=== PATIENT | female | born 1990 | race Caucasian/White ===

== ENCOUNTER 2019-10-22 15:16 | Observation (INO) | payer OTHER, SELFPAY ==
[2019-10-22] VITALS (16 sets, daily range): BP systolic 110–131; BP diastolic 65–87; PULSE 87–123; TEMP 36.8
[2019-10-22] MEDS: BETAMETHASONE SOD PHOS/ACETATE 30 MG/5 ML VIAL 12 MG IM (18:56)
[2019-10-22] MEDS: NIFEdipine 30 MG TAB.ER.24 PO ×2 (18:56→20:03)
[2019-10-22 19:03] LABS: Glucose Point of Care 88 (65-105)
[2019-10-22] MEDS: TERBUTALINE SULFATE 1 MG/ML VIAL 0.25 MG SUB-Q (20:20)
[2019-10-22] MEDS: LACTATED RINGERS 1,000 ML 999 ML IV CONT (20:28)
[2019-10-22 21:30] LABS: Glucose Point of Care 183 (65-105)
[2019-10-22] MEDS: ZOLPIDEM TARTRATE 5 MG TABLET PO (22:19)
[2019-10-23 00:30] VITALS: TEMP 36.9
--- NOTE | 2019-10-23 04:24 | PM.IMHP ---
H&P: HPI History of Present Illness Chief complaint: Contractions Narrative: Amber Zaragoza is a 28 year old female Review of Systems Review of Systems: All systems reviewed & are unremarkable except as noted in HPI and below Meds Home Medications and Allergies Allergies Allergy/AdvReac Type Severity Reaction Status Date / Time No Known Allergies Allergy Unverified 12/15/16 14:57 Vital Signs Vital Signs - 24 hr 10/22/19 15:46 10/22/19 16:01 10/22/19 16:16 Temperature Pulse Rate 94 106 H 93 Blood Pressure 120/80 115/80 131/77 10/22/19 16:31 10/22/19 16:46 10/22/19 17:01 Temperature Pulse Rate 123 H 94 99 Blood Pressure 121/77 119/79 118/75 10/22/19 17:02 10/22/19 17:16 10/22/19 17:31 Temperature Pulse Rate 87 93 91 Blood Pressure 119/70 115/70 115/65 10/22/19 17:46 10/22/19 18:01 10/22/19 18:16 Temperature Pulse Rate 111 H 102 H 107 H Blood Pressure 116/80 110/75 126/87 10/22/19 18:30 10/22/19 18:31 10/22/19 18:46 Temperature 36.8 C Pulse Rate 95 123 H Blood Pressure 117/69 116/84 10/22/19 22:30 Temperature 36.8 C Pulse Rate Blood Pressure Exam Const: General: no acute distress GI: GI Palp: Yes Soft to palpation Skin: General skin exam: normal color Neuro: General: gait normal Assessment and Plan Additional Plan 1. contractions w/o labor IV hydration betamethasone procardia 30 mg XL 2. GDM diet controlled continue fasting and 1 hour postprandial blood sugar If no cervical change plan to d/c home in the am and follow up for second dose of betamethasone as scheduled plan procardia 30 mg xl daily until 36 weeks gestation
[2019-10-23 04:45] VITALS: TEMP 36.9
== END 2019-10-23 05:15 | disposition home or self-care (01) ==
PROVIDERS: Admitting Provider Obstetrics & Gynecology; Visit Provider Obstetrics & Gynecology
DX: O60.00 Preterm labor without delivery, unspecified trimester (principal); O24.410 Gestational diabetes mellitus in pregnancy, diet controlled; Z3A.00 Weeks of gestation of pregnancy not specified
CPT/HCPCS: 96372; A9270; G0378; G0379; J0702; J3105; J7120

== ENCOUNTER 2019-10-23 18:56 | Outpatient (CLI) | payer OTHER, SELFPAY ==
[2019-10-23] VITALS (24 sets, daily range): BP systolic 119–132; BP diastolic 66–78; PULSE 98–128; TEMP 36.7; O2SAT 97–100
--- NOTE | 2019-10-23 19:15 | PC.NURSE ---
Patient at OB unit for 2nd dose of Celestone per order. Upon assessment, patient reports >6 contractions in an hour over the last hour. Patient placed on Monitor for NST.
[2019-10-23] MEDS: BETAMETHASONE SOD PHOS/ACETATE 30 MG/5 ML VIAL 12 MG IM (19:16)
--- NOTE | 2019-10-23 19:31 | PC.NURSE ---
Updated Dr. Vee on patient contractions >6 in 1 hour of monitoring. Contractions palpate mild in intensity. FHT reactive. VS WNL. Orders given.
--- NOTE | 2019-10-23 20:10 | PC.NURSE ---
Updated Dr. Vee on patient contractions >6 in 1 hour of monitoring. Contractions palpate mild in intensity. FHT reactive. VS WNL. Orders given.
[2019-10-23] MEDS: TERBUTALINE SULFATE 1 MG/ML VIAL 0.25 MG SUB-Q (20:22)
--- NOTE | 2019-10-23 20:22 | PC.NURSE ---
Plan of care reviewed with patient. Medication education performed prior to administering Terbutaline. Patient agrees with plan of care and denies questions.
--- NOTE | 2019-10-23 21:31 | PC.NURSE ---
Dr. Vee updated on patient uterine activity, FHT, vital signs and SVE. Dr. Vee offered for patient to go home or patient may receive a second dose of terbutaline if she does not feel comfortable going home. Patient to follow-up at appointment in AM.
--- NOTE | 2019-10-23 21:35 | PC.NURSE ---
Plan of care discussed with patient. Patient given option to go home now, or receive another dose of terbutaline if she did not feel comfortable going home. Patient states she feels comfortable going home and would like to leave. Patient instructed to follow-up at scheduled appointment. labor precautions reviewed with patient before she left. Patient states understanding and denies questions.
== END 2019-10-23 21:40 | disposition home or self-care (01) ==
LOC: ANHOBOP 19:08 → ANHOBPP 19:10
PROVIDERS: Visit Provider Obstetrics & Gynecology
DX: Z36.89 Encounter for other specified antenatal screening (principal)
CPT/HCPCS: 59025; 99199; J0702; J3105

== ENCOUNTER 2019-11-18 06:25 | Inpatient (IN) | payer OTHER, SELFPAY ==
[2019-11-18] VITALS (22 sets, daily range): BP systolic 111–136; BP diastolic 49–98; PULSE 72–103; RESP 18–20; TEMP 36.8–37.2; O2SAT 98; BMI 29.4
--- NOTE | 2019-11-18 07:30 | WPDHPUPDATE1 ---
History and Physical Update Update Date/Time: 11/18/19 07:30 This patient is a 28 y/o at 38 week gestation who presents for labor. She is a diet controlled GDM. SROM History and Physical has been reviewed, including an updated exam of the patient. There are NO changes in the patient's condition. Risks, benefits, and alternatives have been discussed and questions answered. Patient agrees to proceed with procedure.
[2019-11-18 07:46] LABS: Basophils Percent Auto 0.3 % (0.2-1.2); Eosinophils Absolute Auto 0.1 K/mm3 (0-0.3); Eosinophils Percent Auto 0.7 % (0-4.4); Hematocrit 40.6 % (37.0-47.0); Hemoglobin 13.7 g/dL (12.0-15.0); Immature Granulocyte Absolute 0.12 K/mm3 (0.00-0.031); Immature Granulocyte Percent A 0.9 % (0-0.5); Lymphocytes Absolute Auto 2.55 K/mm3 (0.9-3.2); Lymphocytes Percent Auto 18.4 % (18.3-44.2); Mean Corpuscular HGB Conc 33.7 g/dl (32-36); Mean Platelet Volume 12.1 fl (7.4-10.4); Monocytes Absolute Auto 0.8 K/mm3 (0.1-0.6); Monocytes Percent Auto 5.8 % (2.6-8.5); Neutrophils Absolute Auto 10.3 K/mm3 (1.3-6.7); Neutrophils Percent Auto 73.9 % (45.5-73.1); Platelet Count Result 207 k/mm3 (150-375); Red Blood Count 4.56 M/mm3 (4.2-5.4); Red Cell Distribution Width 13.1 % (11.5-14.5); White Blood Count 13.9 K/mm3 (4.5-10.0)
--- NOTE | 2019-11-18 07:48 | LDADM ---
This patient, Amber Zaragoza, was admitted to Labor/Delivery/Recovery 102 on 11/18/19 at 06:25. Plans for labor, pain management and were discussed with patient. Patient/family oriented to hospital policies and general routines including ID bracelet, bed and alarms, visiting hours, pain management, procedures, bathroom and other care routines, personal items, smoking policy, room service/diet and guest tray routines, security routines, call light, and visiting hours. Patient/Family are encouraged to report perceived risks to care and to ask questions if they do not understand what they are told or what they should do. See OBIX for further documentation.
[2019-11-18 08:03] LABS: Glucose Point of Care 75 (65-105)
[2019-11-18 10:37] LABS: Rapid Plasma Reagin Non-Reactive (NonReactive)
--- NOTE | 2019-11-18 11:07 | PM.OBPNVD ---
OB - PN: Subj Subjective Date/time seen: 11/18/19 11:07 OB - PN: Obj Data Labs CBC & Chem 7: 11/18/19 07:32 11/18/19 07:32 Labs: Laboratory Results - last 24 hr 11/18/19 11/18/19 11/18/19 07:32 07:32 07:32 WBC 13.9 H RBC 4.56 Hgb 13.7 Hct 40.6 MCV 89.0 MCH 30.0 MCHC 33.7 RDW 13.1 Plt Count 207 MPV 12.1 H Immature Gran % (Auto) 0.9 H Neut % (Auto) 73.9 H Lymph % (Auto) 18.4 [place] % (Auto) 5.8 Eos % (Auto) 0.7 Baso % (Auto) 0.3 Lymph # (Auto) 2.55 [place] # (Auto) 0.8 H Eos # (Auto) 0.1 Baso # (Auto) 0.0 Abs Immat Gran (auto) 0.12 H Absolute Neuts (auto) 10.3 H Absolute Nucleated RBC 0.0 Nucleated RBC % 0.0 Glucose POC Capillary Glucose RPR Non-reactive Blood Type A Positive Antibody Screen Negative 11/18/19 11/18/19 07:32 07:57 WBC RBC Hgb Hct MCV MCH MCHC RDW Plt Count MPV Immature Gran % (Auto) Neut % (Auto) Lymph % (Auto) [place] % (Auto) Eos % (Auto) Baso % (Auto) Lymph # (Auto) [place] # (Auto) Eos # (Auto) Baso # (Auto) Abs Immat Gran (auto) Absolute Neuts (auto) Absolute Nucleated RBC Nucleated RBC % Glucose Cancelled POC Capillary Glucose 75 RPR Blood Type Antibody Screen OB - PN A/P Assessment and Plan (1) Term : Code(s): Z34.90 - Encounter for supervision of normal , unspecified, unspecified trimester Status: Acute (2) Active labor: Status: Acute Assessment and Plan: 28-year-old multi hip at term in active labor. Artificial rupture of membranes was performed. She has the fluid was clear. The cervix is 6 cm/90%/ 0 station. There is reassuring status Time Spent With Patient Time: Total time spent is greater than 50% in coordination of care (as documented) at patient's floor/unit and/or counseling patient:
[2019-11-18 12:05] LABS: Glucose Point of Care 83 (65-105)
--- NOTE | 2019-11-18 12:59 | P.PCNOB_ITS ---
OB - Delivery Note Procedure Delivery date: 11/18/19 Procedure: Intrapartal events: None Induction method: none Delivery augmentation: rupture of membranes Delivery monitor: external FHT and external uterine Route of delivery: Episiotomy description: None Laceration description: None Specimen: No Estimated blood loss (mL): 200 Disposition: floor [place] Date of : 11/18/19 Time of : 12:40 Weeks of gestation at delivery: 39 Infant gender: Male Weight (pounds): 6 Weight (ounces): 6 presentation: vertex position: Left Occiput Transverse Placenta delivery description: Spontaneous cord vessel description: 3 Vessels score one minute: 8 score five minutes: 9
[2019-11-18] MEDS: OXYTOCIN 30 UNITS/NS 500 ML 30 UNITS/500 ML BAG 125 UNITS IV CONT (13:31)
[2019-11-18] MEDS: IBUPROFEN 600 MG TABLET PO (13:31)
--- NOTE | 2019-11-18 15:45 | OBPPTRN ---
Patient transferred to post room # 291 via wheelchair. Support person present. Oriented to unit, room, information board, rooming in, admission packet and security measures. Patient verbalizes understanding.
[2019-11-19 05:37] LABS: Hematocrit 39.6 % (37.0-47.0); Hemoglobin 13.3 g/dL (12.0-15.0)
[2019-11-19 08:00] VITALS: BP 130/67; PULSE 69; RESP 18; TEMP 36.9
--- NOTE | 2019-11-19 08:09 | PM.OBPNVD ---
OB - PN: Subj Subjective Date/time seen: 11/19/19 08:09 Patient comments: no complaints baby status: doing well OB - PN: Obj Data Labs CBC & Chem 7: 11/19/19 05:01 11/18/19 07:32 Labs: Laboratory Results - last 24 hr 11/18/19 11/18/19 11/18/19 07:32 07:32 12:02 Hgb Hct POC Capillary Glucose 83 RPR Non-reactive Blood Type A Positive Antibody Screen Negative 11/19/19 05:01 Hgb 13.3 Hct 39.6 POC Capillary Glucose RPR Blood Type Antibody Screen OB - PN A/P Plan day: 1 Plan: discharge home Time Spent With Patient Time: Total time spent is greater than 50% in coordination of care (as documented) at patient's floor/unit and/or counseling patient: Review of Systems Review of Systems: All systems reviewed & are unremarkable except as noted in HPI and below Constitutional: Constitutional: Reports as per HPI Cardiovascular: Cardiovascular: Reports as per HPI Gastrointestinal: Gastrointestinal: Reports as per HPI Exam Const: General: comfortable Resp: Effort & Inspection: normal respiratory effort Psych: Appearance: grossly normal Affect: normal affect Attitude: cooperative Judgement: Good judgement present (Psych)
[2019-11-19] MEDS: SERTRALINE HCL 50 MG TABLET PO (10:37)
[2019-11-19] MEDS: MULTIVIT/MIN/PREN/FOL AC/IRON TABLET 1 TAB PO (10:37)
[2019-11-20 12:52] VITALS: BP 119/87; PULSE 104; RESP 24
--- NOTE | 2019-12-15 20:55 | PM.OBDSVD ---
DS: Admitting Diagnosis Admitting Diagnosis Admitting Diagnosis: Encounter for supervision of normal , unspecified, third trimester DS: Discharge Diagnosis Discharge Diagnosis (1) Term delivered: Code(s): O80 - Encounter for full-term uncomplicated delivery Status: Acute OB - DS: Summary OB Procedures : None OB Procedures Intrapartum: Spontaneous Vag Delivery OB Procedures: : None Peripartum Data Delivery Method: Natural Vaginal Time Spent with Patient Time attestation: Total time spent providing and/or coordinating discharge services: DS: Data Data Completed and Pending Completed studies during hospitalization: Pending at discharge 11/18/19 17:04 Surgical [PTH] Routine Discharge Plan Discharge Attending physician on discharge: Wendy Ornelas Consulting providers: Kassandra Brand Discharging Clinician: Kassandra Brand Patient Disposition: Home, Self-Care Activity: pelvic rest Diet: regular Discharge Instructions: Education: Mom and Baby Guide Given to: Mother Follow-Up: Call your delivering provider's office for an appointment to be seen in: 4-6 weeks. Mom and baby should come to the [facility] for the follow-up appointment. Appointment Date/Time: November 20, 2019 at 12:30 am What to expect at your follow-up visit: Physical Assessment Call [phone] if you are unable to keep your appointment time. BREAST CARE: 1. Wear a snug supportive bra. 2. For engorgement discomfort: Breast Feeding: A. Apply warm moist washcloths B. Express milk as needed to relieve engorgement C. Wear loose clothing 3. For sore nipples: A. Identify correct latch-on B. Apply warm moist washcloths before and after nursing C. Air dry nipples after nursing D. May apply Lansinoh cream to nipples PERINEAL CARE: 1. Until bleeding stops, use your petra bottle after urinating 2. Change your pad frequently throughout the day 3. You may take sitz baths several times a day (fill your bathtub with warm water and soak for 20 minutes.) Do NOT bathe in the water 4. No tub baths until seen by your physician - You may shower ACTIVITY: 1. Rest as much as possible. 2. Do not exercise or lift anything heavier than your baby (such as laundry or other children.) 3. Avoid stairs or driving as much as possible. 4. Do not put anything into the vagina. No douching, tampons, or sexual activity until seen by physician. NOTIFY PHYSICIAN IF YOU HAVE ANY QUESTIONS OR IF ANY OF THE FOLLOWING SYMPTOMS OCCUR: 1. If your perineum becomes red, swollen, or more painful than what you have experienced in the hospital. 2. If your vaginal bleeding becomes foul smelling. 3. If your vaginal bleeding becomes more heavy than a period or if your bleeding changes from pink to bright red. However, you may pass an occasional walnut-sized clot once or twice for the first week . 4. If you experience a sharp, shooting pain in you calves. 5. If you discover a hard, reddened area on your breast or if you experience flu-like symptoms. DIET: 1. Eat regular, well-balanced meals. 2. Drink plenty of fluids daily. If , drink to thirst. Stand Alone Forms: General Discharge Information Follow-up/Referrals: Wendy Ornelas MD [Physician] - 4 Weeks Discharge Medications: New acetaminophen [Mapap (acetaminophen)] 325 mg Tablet 650 mg PO Q6H PRN (Reason: Mild Pain (1-3) Or Headache) RF: 0 Dermoplast (with menthol) 20-0.5 % Aerosol 1 spray topical PRN PRN (Reason: Perineal Discomfort) RF: 0 dibucaine 1 % Ointment 1 applic topical PRN PRN (Reason: Hemorrhoids) RF: 0 docusate sodium 100 mg Capsule 100 mg PO BID PRN (Reason: Constipation) RF: 0 ibuprofen 600 mg Tablet 600 mg PO Q6H PRN (Reason: Cramping) RF: 0 Jnd-I-Ilaiaw Cream 1 applic topical PRN PRN (Reason: Sore Nipples) Maude
== END 2019-11-19 16:00 | disposition home or self-care (01) | DRG 807 ==
LOC: ANHLDR 07:10 → ANHOB2 15:50
PROVIDERS: Admitting Provider Obstetrics & Gynecology; Visit Provider Obstetrics & Gynecology
DX: O24.420 Gestational diabetes mellitus in childbirth, diet controlled (principal); Z37.0 Single live birth; Z3A.38 38 weeks gestation of pregnancy; O99.89 Other specified diseases and conditions complicating pregnancy, childbirth and the puerperium; M41.9 Scoliosis, unspecified; O99.284 Endocrine, nutritional and metabolic diseases complicating childbirth; E28.2 Polycystic ovarian syndrome
CPT/HCPCS: 36415; 85014; 85018; 85025; 86592; 86850; 86900; 86901; 88307; A9270; J2590

== ENCOUNTER → 2020-06-14 14:52 | Outpatient (CLI) | payer OTHER, SELFPAY ==
--- NOTE | ~2020-06-14 | US_ITS ---
US breast LT complete INDICATION: Left breast pain with fever TECHNIQUE: Dedicated complete left breast ultrasound including all 4 quadrants in the subareolar loca tion. COMPARISON: No prior studies for comparison. FINDINGS: The left breast is composed of normal heterogeneous echotexture without focal solid or cyst ic mass. IMPRESSION: 1: Normal left breast ultrasound. BI-RADS CATEGORY 1 - NEGATIVE Reviewed, dictated and finalized at location A. F CREDIT OFFICER
== END ==
PROVIDERS: Visit Provider Obstetrics & Gynecology
DX: N61.0 Mastitis without abscess (principal)
CPT/HCPCS: 76641

== ENCOUNTER 2021-08-24 10:53 | Emergency (ER) | payer OTHER, SELFPAY ==
[2021-08-24 10:58] VITALS: BP 130/73; PULSE 101; RESP 16; TEMP 36.8; O2SAT 100
--- NOTE | 2021-08-24 11:23 | ED.SKABFB ---
HPI - Skin/Abscess/Foreign Bdy General Chief complaint: Skin/Abscess/Foreign Body Stated complaint: Rash Time Seen by Provider: 08/24/21 11:23 Source: patient Mode of arrival: ambulatory Limitations: no limitations History of Present Illness HPI narrative: 30-year-old female 19 weeks gestation, presented for complaint of bilateral lower leg rash intermittently for 4 days. She states it is worse at night when she has sheets touching the legs, or and her pant legs touch the ankles. She showed pictures of urticarial rash to posterior lower legs/ankles. Denies changes to detergent, soap, lotion etc. No other locations of rash, but states both wrists itch at times. She states she saw her [employer] who prescribed triamcinolone cream and antihistamines. Denies associated lip, tongue, or throat swelling, itching, shortness of breath or wheezing. complaint: rash Related Data Home Medications Medication Instructions Recorded Confirmed metformin 850 mg PO BID 08/24/21 08/24/21 [id number] fum-folic [id number] pkg PO 08/24/21 [One Daily ] Allergies Allergy/AdvReac Type Severity Reaction Status Date / Time No Known Allergies Allergy Verified 08/24/21 11:20 Review of Systems Review of Systems: CONSTITUTIONAL: Denies body aches, fever, chills, or sweats. EYES: Denies visual changes, redness, or discharge. ENT: Denies rhinorrhea, congestion, sore throat, or otalgia. CARDIOVASCULAR: Denies chest pain, palpitations, or edema. RESPIRATORY: Denies cough or dyspnea. GASTROINTESTINAL: Denies abdominal pain, nausea, vomiting, or diarrhea. GENITOURINARY: Denies dysuria or hematuria. SKIN: rash to legs MUSCULOSKELETAL: Denies back pain, joint pain, or myalgia. NEUROLOGIC: Denies headache, numbness, tingling, or weakness. PSYCH: Denies depression or anxiety. [facility] Family History Family History Grandparent Ovarian cancer High cholesterol Parkinson disease Social History Social History Smoking status: Never smoker Substance use: never Spiritual care concerns: No Comments At time of signature, I have reviewed and agree with nursing past medical, surgical, social and family history unless otherwise noted. Please see nursing chart for further information. There is no relevant family history pertinent to the presenting complaint Exam Narrative: GENERAL: Well-appearing, well-nourished, and in no acute distress. HEAD: Normocephalic, atraumatic. EYES: PERRLA, conjunctivae clear, and EOMI. ENT: Mucous membranes moist. Oropharynx without edema, erythema or lesions. NECK: Supple. No lymphadenopathy CHEST: Clear to auscultation. No respiratory distress. HEART: Regular rate and rhythm. SKIN: Warm, dry. Pale pink Patches of urticaria to bilat posterior ankles, approx 3 inches diameter to posterior ankle No swelling, bruising, or vesicles. Pulses palpable and equal bilat. cap refill <3 seconds. NEURO: Alert and oriented x3. PSYCH: Normal mood and affect Course Course Emergency Course: Patient is aware of diagnosis, understands and agrees to treatment plan. She will f/u with obgyn and call them for refill triamcinolone. Anticipatory guidance given. Patient agrees to follow-up as directed and is aware of reasons to seek care at the emergency department. Portions of this record may have been created with voice recognition software Level of Care: Express Care Visit Vital Signs Vital signs: Vital Signs Temperature 98.3 F 08/24/21 10:58 Pulse Rate 101 H 08/24/21 10:58 Respiratory Rate 16 08/24/21 10:58 Blood Pressure 130/73 08/24/21 10:58 Pulse Oximetry 100 08/24/21 10:58 Temperature 98.3 F 08/24/21 10:58 Pulse Rate 101 H 08/24/21 10:58 Respiratory Rate 16 08/24/21 10:58 Blood Pressure 130/73 08/24/21 10:58 Pulse Oximetry 100 08/24/21 10:58 Reviewed M
== END 2021-08-24 11:40 | disposition home or self-care (01) ==
PROVIDERS: Emergency Provider Nurse Practitioner Family; PCP Obstetrics & Gynecology
DX: L30.9 Dermatitis, unspecified (principal); Z86.16 Personal history of COVID-19; M41.9 Scoliosis, unspecified
CPT/HCPCS: 99211; G0463

== ENCOUNTER 2021-11-15 12:37 | Observation (INO) | payer OTHER, SELFPAY ==
[2021-11-15] VITALS (19 sets, daily range): BP systolic 117–132; BP diastolic 71–80; PULSE 98–109; TEMP 36.4; O2SAT 96–100
--- NOTE | 2021-11-15 13:35 | PC.NURSE ---
Called Dr. Dowd and robyn report on pt complaints. Orders received.
[2021-11-15 14:11] LABS: Appearance Urine Slightly Cloudy (Clear); Bilirubin Urine Negative (Negative); Blood Urine Negative (Negative); Color Urine Yellow (Yellow); Glucose Urine UA Negative (Negative); Ketones Urine Negative (Negative); Leukocyte Esterase Ur 1+ LEU/UL (NEGATIVE); Nitrate Urine Negative (Negative); Protein Urine Negative (Negative); Specific Grav Ur 1.015 (1.001-1.035); Urobilinogen Urine 0.2 mg/dL (<2.0)
[2021-11-15 14:13] LABS: Basophils Absolute Auto 0.1 K/mm3 (0.0-0.1); Basophils Percent Auto 0.6 % (0.2-1.2); Eosinophils Absolute Auto 0.2 K/mm3 (0-0.3); Eosinophils Percent Auto 1.1 % (0-4.4); Hematocrit 39.5 % (37.0-47.0); Hemoglobin 12.9 g/dL (12.0-15.0); Immature Granulocyte Absolute 0.53 K/mm3 (0.00-0.031); Immature Granulocyte Percent A 3.8 % (0-0.5); Lymphocytes Absolute Auto 2.21 K/mm3 (0.9-3.2); Lymphocytes Percent Auto 15.8 % (18.3-44.2); Mean Corpuscular HGB Conc 32.7 g/dl (32-36); Mean Corpuscular Hemoglobin 30.5 pg (26-34); Mean Corpuscular Volume 93.4 fl (80-100); Mean Platelet Volume 10.9 fl (7.4-10.4); Monocytes Absolute Auto 0.8 K/mm3 (0.1-0.6); Monocytes Percent Auto 5.8 % (2.6-8.5); Neutrophils Absolute Auto 10.2 K/mm3 (1.3-6.7); Neutrophils Percent Auto 72.9 % (45.5-73.1); Platelet Count Result 200 k/mm3 (150-375); Red Blood Count 4.23 M/mm3 (4.2-5.4); Red Cell Distribution Width 13.9 % (11.5-14.5)
[2021-11-15 14:15] LABS: Bacteria Urine Trace /hpf; RBC Urine 0-2 /hpf (0-2); Squamous Epithelial Cell Urine Few /hpf (Few); WBC Urine 0-3 /hpf (0-3)
[2021-11-15 14:20] LABS: Add Urine Microscopic? YES
[2021-11-15 14:23] LABS: Alanine Aminotransferase 14 U/L (6-35); Albumin Level 3.5 g/dL (3.5-5.1); Alkaline Phosphatase 105 U/L (38-126); Anion Gap 7 mmol/L (8-16); Aspartate Amino Transferase 33 U/L (14-36); Bilirubin,Total 0.8 mg/dL (0.2-1.3); Blood Urea Nitrogen 7 mg/dL (7-17); Calcium 8.2 mg/dL (8.4-10.2); Carbon Dioxide 16 mmol/L (22-30); Chloride 108 mmol/L (98-107); Estimated Glomerular Filt Rate > 60; Glucose 86 mg/dL (65-110); Potassium 4.1 mmol/L (3.4-5.0); Sodium 131 mmol/L (137-145); Uric Acid 4.2 mg/dL (2.5-7.5)
[2021-11-15 14:26] LABS: Creatinine Urine 57.5 mg/dL; Total Protein Urine Random 7 mg/dL; Ur Ttl Prot Creatinine Ratio 0.12 mg/mg (0-0.20)
--- NOTE | 2021-11-15 14:35 | PC.NURSE ---
Noemí called and made aware of pt. lab work, BP, and FHR tracing. Orders received to discharge pt to take PM tylenol as needed.
--- NOTE | 2021-11-15 14:40 | OBADM ---
This patient, Amber Zaragoza, admitted to the OB room OB Post 116 for observation. Patient/family oriented to hospital policies and general routines including ID bracelet, bed and alarms, visiting hours, pain management, procedures, bathroom and other care routines, personal items, smoking policy, room service/diet, and visiting hours. Patient/Family are encouraged to report perceived risks to care and to ask questions if they do not understand what they are told or what they should do.
--- NOTE | 2021-11-18 07:09 | PM.OBTRLD ---
OB - Triage/Final Diagnosis Visit Information Comments/Additional reasons for admission: I have assessed the risk for this patient, Amber Zaragoza, and determined that she would benefit from observation care. Evaluation Laboratory results: Laboratory Tests 11/15/21 11/15/21 11/15/21 13:55 13:55 13:55 WBC 14.0 H RBC 4.23 Hgb 12.9 Hct 39.5 MCV 93.4 MCH 30.5 MCHC 32.7 RDW 13.9 Plt Count 200 MPV 10.9 H Immature Gran % (Auto) 3.8 H Neut % (Auto) 72.9 Lymph % (Auto) 15.8 L [place] % (Auto) 5.8 Eos % (Auto) 1.1 Baso % (Auto) 0.6 Lymph # (Auto) 2.21 [place] # (Auto) 0.8 H Eos # (Auto) 0.2 Baso # (Auto) 0.1 Abs Immat Gran (auto) 0.53 H Absolute Neuts (auto) 10.2 H Absolute Nucleated RBC 0.0 Nucleated RBC % 0.0 Sodium Potassium Chloride Carbon Dioxide Anion Gap BUN Creatinine Estim Creat Clear Calc Estimated GFR Glucose Uric Acid Calcium Total Bilirubin AST ALT Alkaline Phosphatase Total Protein Albumin Urine Color Yellow Urine Appearance Slightly cloudy Urine pH 7.0 Ur Specific [place] 1.015 Urine Protein Negative Urine Glucose (UA) Negative Urine Ketones Negative Ur Blood (Man) Negative Urine Nitrate Negative Urine Bilirubin Negative Urine Urobilinogen 0.2 Ur Leukocyte Esterase 1+ H Urine RBC 0-2 Urine WBC 0-3 Ur Squamous Epith Cells Few Urine Bacteria Trace U Random Total Protein 7 Urine Creatinine 57.5 Protein/Creat Ratio 2 0.12 11/15/21 13:55 WBC RBC Hgb Hct MCV MCH MCHC RDW Plt Count MPV Immature Gran % (Auto) Neut % (Auto) Lymph % (Auto) [place] % (Auto) Eos % (Auto) Baso % (Auto) Lymph # (Auto) [place] # (Auto) Eos # (Auto) Baso # (Auto) Abs Immat Gran (auto) Absolute Neuts (auto) Absolute Nucleated RBC Nucleated RBC % Sodium 131 L Potassium 4.1 Chloride 108 H Carbon Dioxide 16 L Anion Gap 7 L BUN 7 Creatinine 0.40 L Estim Creat Clear Calc Not Reportable Estimated GFR > 60 Glucose 86 Uric Acid 4.2 Calcium 8.2 L Total Bilirubin 0.8 AST 33 ALT 14 Alkaline Phosphatase 105 Total Protein 7.0 Albumin 3.5 Urine Color Urine Appearance Urine pH Ur Specific [place] Urine Protein Urine Glucose (UA) Urine Ketones Ur Blood (Man) Urine Nitrate Urine Bilirubin Urine Urobilinogen Ur Leukocyte Esterase Urine RBC Urine WBC Ur Squamous Epith Cells Urine Bacteria U Random Total Protein Urine Creatinine Protein/Creat Ratio 2 Final Diagnosis (1) Weakness: Code(s): R53.1 - Weakness Status: Acute
== END 2021-11-15 15:04 | disposition home or self-care (01) ==
PROVIDERS: Admitting Provider Obstetrics & Gynecology; Visit Provider Obstetrics & Gynecology
DX: O26.899 Other specified pregnancy related conditions, unspecified trimester (principal); R53.1 Weakness; Z3A.00 Weeks of gestation of pregnancy not specified
CPT/HCPCS: 36415; 80053; 81001; 82570; 84156; 84550; 85025; 87086; 87088; G0378; G0379

== ENCOUNTER 2021-11-24 10:54 | Outpatient (CLI) | payer OTHER, SELFPAY ==
[2021-11-24] VITALS (14 sets, daily range): BP systolic 101–138; BP diastolic 59–86; PULSE 90–121; BMI 30.9
[2021-11-24] MEDS: ACETAMINOPHEN/BUTALBITAL/CAFFEINE 325-50-40 MG TABLET (FIORICET) 2 TAB PO (11:51)
[2021-11-24 12:03] LABS: Basophils Absolute Auto 0.1 K/mm3 (0.0-0.1); Basophils Percent Auto 0.8 % (0.2-1.2); Eosinophils Absolute Auto 0.2 K/mm3 (0-0.3); Eosinophils Percent Auto 1.1 % (0-4.4); Hematocrit 37.3 % (37.0-47.0); Hemoglobin 12.5 g/dL (12.0-15.0); Immature Granulocyte Absolute 0.77 K/mm3 (0.00-0.031); Immature Granulocyte Percent A 4.8 % (0-0.5); Lymphocytes Absolute Auto 2.49 K/mm3 (0.9-3.2); Lymphocytes Percent Auto 15.4 % (18.3-44.2); Mean Corpuscular HGB Conc 33.5 g/dl (32-36); Mean Corpuscular Hemoglobin 31.2 pg (26-34); Mean Platelet Volume 10.6 fl (7.4-10.4); Monocytes Percent Auto 6.2 % (2.6-8.5); Neutrophils Absolute Auto 11.6 K/mm3 (1.3-6.7); Neutrophils Percent Auto 71.7 % (45.5-73.1); Platelet Count Result 219 k/mm3 (150-375); Red Blood Count 4.01 M/mm3 (4.2-5.4); White Blood Count 16.2 K/mm3 (4.5-10.0)
[2021-11-24 12:15] LABS: Appearance Urine Clear (Clear); Bilirubin Urine Negative (Negative); Blood Urine Negative (Negative); Color Urine Yellow (Yellow); Glucose Urine UA Trace mg/dL (Negative); Ketones Urine Trace mg/dL (Negative); Leukocyte Esterase Ur Negative LEU/UL (Negative); Nitrate Urine Negative (Negative); Protein Urine Negative (Negative); Sodium 136 mmol/L (137-145); Specific Grav Ur 1.015 (1.001-1.035); Urobilinogen Urine 0.2 mg/dL (<2.0)
[2021-11-24 12:28] LABS: Add Urine Microscopic? NO
[2021-11-24 12:52] LABS: Alanine Aminotransferase 18 U/L (6-35); Albumin Level 3.5 g/dL (3.5-5.1); Alkaline Phosphatase 89 U/L (38-126); Anion Gap 8 mmol/L (8-16); Aspartate Amino Transferase 20 U/L (14-36); Bilirubin,Total 0.5 mg/dL (0.2-1.3); Blood Urea Nitrogen 7 mg/dL (7-17); Calcium 8.4 mg/dL (8.4-10.2); Carbon Dioxide 18 mmol/L (22-30); Chloride 110 mmol/L (98-107); Estimated CRCL calculation 146 ml/min; Estimated Glomerular Filt Rate > 60; Glucose 81 mg/dL (65-110)
[2021-11-24 13:07] LABS: Creatinine Urine 36.9 mg/dL
[2021-11-24 13:29] LABS: Total Protein Urine Random < 5 mg/dL; Ur Ttl Prot Creatinine Ratio < 0.14 mg/mg (0-0.20)
[2021-11-24] MEDS: LACTATED RINGERS 1,000 ML 999 ML IV CONT (14:43)
[2021-11-24] MEDS: diphenhydrAMINE HCl INJ 50 MG/ML VIAL 25 MG IV PUSH (14:45)
[2021-11-24] MEDS: METOCLOPRAMIDE HCL INJ 10 MG/2 ML VIAL IV PUSH (14:48)
--- NOTE | 2021-11-24 15:00 | PC.NURSE ---
Amira Brand CNM informed pt states she had some pink vaginal spotting yesterday and she also fell yesterday. Pt's blood type A Pos. No additional orders.
--- NOTE | 2021-11-24 15:24 | PC.NURSE ---
Addendum entered by Joana Rice RN 11/24/21 15:26: This note should be timed for 1405. Original Note: Amira Brand CNM informed of BPs, lab results, and still rates headache 10/25. New orders received.
--- NOTE | 2021-11-24 15:48 | PC.NURSE ---
Amira Brand CNM informed patients headache down to a 2-08/25. Order received for discharge.
== END 2021-11-24 15:55 | disposition home or self-care (01) ==
LOC: ANHOBOP 10:59 → ANHOBPP 11:03
PROVIDERS: Visit Provider Advanced Practice Midwife
DX: O13.9 Gestational [pregnancy-induced] hypertension without significant proteinuria, unspecified trimester (principal); Z3A.00 Weeks of gestation of pregnancy not specified
CPT/HCPCS: 36415; 59025; 80053; 81003; 82570; 84156; 84550; 85025; 96374; 96375; 99199; A9270; J1200; J2765; J7120

== ENCOUNTER 2021-12-19 09:48 | Outpatient (RCR) | payer OTHER, SELFPAY ==
[2021-12-19 09:57] VITALS: BP 128/78; PULSE 58
== END 2022-01-27 14:52 | disposition home or self-care (01) ==
LOC: ANHOBOP 09:48
PROVIDERS: Visit Provider Obstetrics & Gynecology
DX: O24.419 Gestational diabetes mellitus in pregnancy, unspecified control (principal); O16.3 Unspecified maternal hypertension, third trimester; Z3A.36 36 weeks gestation of pregnancy
CPT/HCPCS: 59025

== ENCOUNTER 2021-12-24 04:51 | Inpatient (IN) | payer OTHER, SELFPAY ==
[2021-12-24] VITALS (41 sets, daily range): BP systolic 106–141; BP diastolic 49–118; PULSE 87–126; RESP 18; TEMP 35.9–36.4; BMI 31.6
--- OUTSIDE RECORDS SUMMARY | 2021-12-24 04:58 | XMS_ITS | Encounter Summary ---
:1990 Author Reason for Visit None recorded. Assessment and Plan 1. Gestational diabetes mellitus, class A>2< ? non-stress test Discussion Note: None recorded.Patient educational handouts: No information available. Plan of Care Reminders Provider Appointments Ob Routine 01/02/2022 10:45AM Adam Ornelas MD ? Xany on or around 02/25/2022 RJ salgado RN ? Iud Removal on or around 10/01/2024 Amanda Ornelas MD Lab None recorded. ? ? Referral None recorded. ? ? Procedures None recorded. ? ? Surgeries None recorded. ? ? Imaging Non-stress Test 12/22/2021 [facility] Medications Name Start Date ? ? gbsbgqddet-eotkbayyqjnhe-gnfduvgo 50 mg-300 mg-40 mg c apsule ? TAKE 1 TO 2 CAPSULES BY MOUTH EVERY 4 H OURS NEEDED. MAXIMUM DAILY DOSE IS 6 CAPSULES hydrocodone 5 mg-acetaminophen 325 mg tablet ? TAKE 1 TO 2 TABLETS BY MOUTH EVERY 6 HOURS NEEDED FOR PAIN metformin 850 mg tablet ? TAKE 1 TABLET BY MOUTH TWICE DAILY metoclopramide 10 mg tablet ? TAKE 1 TABLET BY MOUTH EVERY 8 HOURS OneTouch Delica Plus Lancet 33 gauge ? TEST BLOOD SUGAR 4 TIMES DAILY OneTouch Ultra Test strips ? OneTouch UltraSoft Lancets ? ? triamcinolone acetonide 0.5 % topical cream ? APPLY THIN LAYER TOPICALLY TO THE AFFECTED AREA TWICE DAILY Medications Administered None recorded. Vitals None recorded. Results Lab Results None recorded. Allergies Code Code System Name Reaction Severity Onset NKDA ? ? ?
--- OUTSIDE RECORDS SUMMARY | 2021-12-24 04:58 | XMS_ITS ---
:1990 Author Care Team Providers Name Role Phone CeciEdisonAdambernardino Rodriguez Primary Care Provider Unavailable Allergies Code Code System Name Reaction Severity Status Onset NKDA ? Medications Name Status Start Date Stop Date ? ? Aimovig Autoinjector 70 mg/mL subcutaneous Completed ? 10/03/2019 auto-injector Ajovy Syringe 225 mg/1.5 mL subcutaneous Completed ? 10/03/2019 alprazolam 0.5 mg tablet Completed ? 020 amitriptyline 25 mg tablet Completed ? 10/02 Aspir-81 mg tablet,delayed release Completed ? 09/06/2020 take 1 tablet by oral route every day Augmentin 875 mg-125 mg tablet Completed 05/07/2015 0 07/20/2015 take 1 tablet by oral route every 12 hours x 10 days azithromycin 250 mg tablet Completed ? 10/02 BD Luer-Marcos Syringe 3 mL 18 x 1 1/2 Completed ? 10/03/2019 BD Regular Bevel [place] 22 gauge x 1 1/2 Completed ? 10/03/2019 butalbital 50 mg-acetaminophen 300 mg-caffeine Completed ? 10/03/2019 40 mg-codeine 30 mg cap ddangqiuuc-nvykncuhhnlog-gukujnee 50 mg-300 mg-40 mg capsule Act rehan ? Not available TAKE 1 TO 2 CAPSULES BY MOUTH EVERY 4 H OURS NEEDED. MAXIMUM DAILY DOSE IS 6 CAPSULES hicntnkluj-fgdhokamblyis-xvxtxypc 50 mg-325 Completed ? 07/19/2021 mg-40 mg tablet cephalexin 500 mg capsule Completed ? 2020 TAKE 1 CAPSULE BY MOUTH EVERY 6 HOURS FOR 7 DAYS cephalexin 500 mg tablet Completed 08/04/2013 015 take 1 tablet (500MG) by oral route every 6 hours Clomid 50 mg tablet Completed ? 07/31/2013 take 2 Tablet by oral route every day for 5 days days 5-9 of cy tay CoQ-10 30 mg cap
--- OUTSIDE RECORDS SUMMARY | 2021-12-24 04:58 | XMS_ITS | Encounter Summary ---
[...] None recorded. ? ? Imaging Non-stress Test 12/12/2021 [place] Medications Name Start Date ? ? azonulbahl-fjvekqzskacro-slmfmamv 50 mg-300 mg-40 mg c apsule ? [...]
--- OUTSIDE RECORDS SUMMARY | 2021-12-24 04:58 | XMS_ITS | Encounter Summary ---
:1990 Author Reason for Visit None recorded. Assessment and Plan 1. Gestational diabetes mellitus, class A>1< ? non-stress test Discussion Note: None recorded.Patient [...] None recorded. ? ? Imaging Non-stress Test 12/15/2021 [place] Medications Name Start Date ? ? doimwvuznw-tpubxhnslphum-plvtqvrz 50 mg-300 mg-40 mg c apsule ? [...]
--- OUTSIDE RECORDS SUMMARY | 2021-12-24 04:58 | XMS_ITS | Encounter Summary ---
:1990 Author Reason for Visit OB visit Assessment and Plan Assessment Note Patient is ___weeks . Discussed plan. 1. Routine care Discussion Note: None recorded.Patient educational handouts: No information available. Plan of Care Reminders Provider Appointments Ob Routine 01/02/2022 10:45AM Adam Ornelas MD ? Xany on or around 02/25/2022 RJ salgado RN ? Iud Removal on or around 10/01/2024 Amanda Ornelas MD Lab None recorded. ? ? Referral None recorded. ? ? Procedures None recorded. ? ? Surgeries None recorded. ? ? Imaging None recorded. ? ? Medications Name Start Date ? ? govkezmvmd-czmewzmtdwfao-jxhtsmye 50 mg-300 mg-40 mg c apsule ? [...] TWICE DAILY Medications Administered None recorded. Vitals Height Weight BMI Blood Pressure 5 ft 0.5 in 161 lbs 30.9 kg/m2 127/86 mm[Hg] Results Lab Results None recorded. Allergies Code Code System Name Reaction Katiana
--- OUTSIDE RECORDS SUMMARY | 2021-12-24 04:58 | XMS_ITS | Encounter Summary ---
:1990 Author Reason for Visit NST DMII Assessment and Plan 1. Gestational diabetes mellitus, [...] None recorded. ? ? Imaging Non-stress Test 12/05/2021 [place] Medications Name Start Date ? ? sbdzuxqiyg-vsjeqnkixfqyg-isowmpga 50 mg-300 mg-40 mg c apsule ? [...]
--- OUTSIDE RECORDS SUMMARY | 2021-12-24 04:58 | XMS_ITS | Encounter Summary ---
:1990 Author Reason for Visit OB visit Assessment and Plan 1. Gestational diabetes mellitus, class A>2< 2. Migraine Discussion Note: None recorded.Patient educational handouts: No [...] ? Medications Name Start Date ? ? clqjhkgjsa-vsseeulplzqkg-ubzsyflc 50 mg-300 mg-40 mg c apsule ? [...] BMI Blood Pressure 5 ft 0.5 in 159 lbs 30.5 kg/m2 (1) 166/83 mm[H g] (2) 132/72 mm[Hg ] Results Lab Results None recorded. Allergies Code Code System Name Reaction Se
--- OUTSIDE RECORDS SUMMARY | 2021-12-24 04:58 | XMS_ITS | Encounter Summary ---
:1990 Author Reason for Visit NST [id number] EDC 01/14/2022 Assessment and Plan 1. Gestational diabetes mellitus, class A>1< ? non-stress test Discussion Note: None recorded.Patient educational handouts: No information available. Plan of Care Reminders Provider Appointments Ob Routine 01/02/2022 10:45AM Adam Ornelas MD ? Xany on or around 02/25/2022 JR salgado RN ? Iud Removal on or around 10/01/2024 Amanda Ornelas MD Lab None recorded. ? ? Referral None recorded. ? ? Procedures None recorded. ? ? Surgeries None recorded. ? ? Imaging Non-stress Test 12/01/2021 [place] Medications Name Start Date ? ? rbojyelemx-onqgvfpeubnui-imrlnkhp 50 mg-300 mg-40 mg c apsule ? [...] BMI Blood Pressure 5 ft 0.5 in 158 lbs 30.3 kg/m2 127/79 mm[Hg] Results Lab Results None recorded. Allergvinnie
--- OUTSIDE RECORDS SUMMARY | 2021-12-24 04:58 | XMS_ITS | Encounter Summary ---
:1990 Author Reason for Visit None recorded. Assessment and Plan 1. COVID-19 ? US, obstetric, follow-up Discussion Note: None recorded.Patient educational handouts: No information available. Plan of Care Reminders Provider Appointments Ob Routine 01/02/2022 10:45AM Adam Ornelas MD ? Xany on or around RN Schedule, RN 02/25/2022 ? Iud Removal on or around Adam jamison MD 10/01/2024 Lab None recorded. ? ? Referral None recorded. ? ? Procedures None recorded. ? ? Surgeries None recorded. ? ? Imaging US, Obstetric, 12/22/2021 [place] Follow-up Medications Name Start Date ? ? bgpqcipnjn-bkdjnffydlgff-meohlzmx 50 mg-300 mg-40 mg c apsule ? [...]
--- OUTSIDE RECORDS SUMMARY | 2021-12-24 04:58 | XMS_ITS | Encounter Summary ---
[...] ? Medications Name Start Date ? ? rczfmuqtlc-hcwalokuhkazv-ibxzyquw 50 mg-300 mg-40 mg c apsule ? [...] BMI Blood Pressure 5 ft 0.5 in 160 lbs 30.7 kg/m2 129/81 mm[Hg] Results Lab Results None recorded. Allergies Code Code System Name Reaction Katiana
--- OUTSIDE RECORDS SUMMARY | 2021-12-24 04:58 | XMS_ITS | Encounter Summary ---
[...] ? Medications Name Start Date ? ? altfwtkjvi-gsgyftblxzcbr-ktsqbgjk 50 mg-300 mg-40 mg c apsule ? [...] BMI Blood Pressure 5 ft 0.5 in 162 lbs 31.1 kg/m2 122/80 mm[Hg] Results Lab Results None recorded. Allergies Code Code System Name Reaction Katiana
--- OUTSIDE RECORDS SUMMARY | 2021-12-24 04:58 | XMS_ITS | Encounter Summary ---
[...] None recorded. ? ? Imaging Non-stress Test 12/08/2021 [place] Medications Name Start Date ? ? rwvwgdertn-ztzncregcifvo-lzywhetm 50 mg-300 mg-40 mg c apsule ? [...]
--- OUTSIDE RECORDS SUMMARY | 2021-12-24 04:59 | XMS_ITS | Encounter Summary ---
[...] ? Iud Removal on or around 10/01/2024 mAanda Ornelas MD Lab None recorded. ? ? Referral None recorded. ? ? Procedures None recorded. ? ? Surgeries None recorded. ? ? Imaging Non-stress Test 11/21/2021 [place] Medications Name Start Date ? ? rtrdjmycte-unsyccdvkqzpd-maaxwwsi 50 mg-300 mg-40 mg c apsule ? [...]
--- OUTSIDE RECORDS SUMMARY | 2021-12-24 04:59 | XMS_ITS | Encounter Summary ---
:1990 Author Reason for Visit None recorded. Assessment and Plan 1. Poor growth affecting manageme nt ? US, obstetric, follow-up 2. Small for gestational age fetus ? US, doppler, umbilical artery v elocimetry Discussion Note: None recorded.Patient educational handouts: No [...] None recorded. ? ? Imaging US, Obstetric, Follow-up 10/18/2021 [place] ? US, Doppler, 10/18/2021 [place] Umbilical Artery Velocimetry Medications Name Start Date ? ? kdzvhbuxzh-drxtcojdmhidz-eatxkoat 50 mg-300 mg-40 mg c apsule ? [...] % topical cream ? APPLY THIN LAYER TO
--- OUTSIDE RECORDS SUMMARY | 2021-12-24 04:59 | XMS_ITS | Encounter Summary ---
[...] None recorded. ? ? Imaging Non-stress Test 11/24/2021 [place] Medications Name Start Date ? ? crogdrpwrc-kdkdakckrbtmf-pcqsedav 50 mg-300 mg-40 mg c apsule ? [...] DAILY Medications Administered None recorded. Vitals Height Blood Pressure 5 ft 0.5 in (1) 161/92 mm[Hg] (2) 138/78 mm[Hg] Results Lab Results
--- OUTSIDE RECORDS SUMMARY | 2021-12-24 04:59 | XMS_ITS | Encounter Summary ---
:1990 Author Reason for Visit None recorded. Assessment and Plan 1. COVID-19 ? US, obstetric, follow-up ? US, obstetric, biophysical profile + non-stress test Discussion Note: None recorded.Patient educational [...] recorded. ? ? Imaging US, Obstetric, Follow-up 11/21/2021 [place] ? US, Obstetric, 11/21/2021 [place] Biophysical Profile + Non-stress Test Medications Name Start Date ? ? jifogkjglw-fxouvgibkzxdh-jtnexard 50 mg-300 mg-40 mg c apsule ? [...]
--- OUTSIDE RECORDS SUMMARY | 2021-12-24 04:59 | XMS_ITS | Encounter Summary ---
:1990 Author Reason for Visit OB visit OB [id number] EDC 01/14/2022 Assessment and Plan Assessment Note Patient is [...] ? Medications Name Start Date ? ? umnsiuzvkn-xytmgewthyvov-mdcbvcnt 50 mg-300 mg-40 mg c apsule ? [...] ft 0.5 in 158 lbs 30.3 kg/m2 135/85 mm[Hg] Results Lab Results None recorded. Allergies
--- OUTSIDE RECORDS SUMMARY | 2021-12-24 04:59 | XMS_ITS | Encounter Summary ---
[...] None recorded. ? ? Imaging Non-stress Test 11/28/2021 [place] Medications Name Start Date ? ? rbdsjuiihh-dxgshutwpletu-vrytqomi 50 mg-300 mg-40 mg c apsule ? [...]
--- OUTSIDE RECORDS SUMMARY | 2021-12-24 04:59 | XMS_ITS | Encounter Summary ---
:1990 Author Reason for Visit None recorded. Assessment and Plan 1. Gestational diabetes mellitus, class A>1< ? US, obstetric, follow-up Discussion Note: None [...] None recorded. ? ? Imaging US, Obstetric, 09/28/2021 [place] Follow-up Medications Name Start Date ? ? kakyfuhyje-masahrtxvqxxv-hdoywgbb 50 mg-300 mg-40 mg c apsule ? [...]
--- OUTSIDE RECORDS SUMMARY | 2021-12-24 04:59 | XMS_ITS | Encounter Summary ---
[...] ? Medications Name Start Date ? ? eeontpjose-dgqkqziiskued-jqjnobzs 50 mg-300 mg-40 mg c apsule ? [...] BMI Blood Pressure 5 ft 0.5 in 153 lbs 29.4 kg/m2 127/81 mm[Hg] Results Lab Results None recorded. Allergies Code Code System Name Maisha Dalal
--- NOTE | 2021-12-24 05:17 | LDADM ---
This patient, Amber Zaragoza, was admitted to Labor/Delivery/Recovery 107 on 12/24/21 at 04:51. Plans for labor, pain management and were discussed with patient. Patient/family oriented to hospital policies and general routines including ID bracelet, bed and alarms, visiting hours, pain management, procedures, bathroom and other care routines, personal items, smoking policy, room service/diet and guest tray routines, security routines, and visiting hours. Patient/Family are encouraged to report perceived risks to care and to ask questions if they do not understand what they are told or what they should do. See OBIX for further documentation.
[2021-12-24 05:31] LABS: Basophils Absolute Auto 0.1 K/mm3 (0.0-0.1); Basophils Percent Auto 0.5 % (0.2-1.2); Eosinophils Absolute Auto 0.1 K/mm3 (0-0.3); Eosinophils Percent Auto 0.5 % (0-4.4); Hematocrit 37.3 % (37.0-47.0); Hemoglobin 12.7 g/dL (12.0-15.0); Immature Granulocyte Absolute 0.27 K/mm3 (0.00-0.031); Immature Granulocyte Percent A 2.1 % (0-0.5); Lymphocytes Absolute Auto 2.22 K/mm3 (0.9-3.2); Lymphocytes Percent Auto 17.4 % (18.3-44.2); Mean Corpuscular Hemoglobin 30.9 pg (26-34); Mean Corpuscular Volume 90.8 fl (80-100); Mean Platelet Volume 11.1 fl (7.4-10.4); Monocytes Absolute Auto 0.7 K/mm3 (0.1-0.6); Monocytes Percent Auto 5.7 % (2.6-8.5); Neutrophils Absolute Auto 9.4 K/mm3 (1.3-6.7); Neutrophils Percent Auto 73.8 % (45.5-73.1); Platelet Count Result 163 k/mm3 (150-375); Red Blood Count 4.11 M/mm3 (4.2-5.4); White Blood Count 12.8 K/mm3 (4.5-10.0)
[2021-12-24] MEDS: LACTATED RINGERS 1,000 ML 125 ML IV CONT ×2 (05:42→13:01)
[2021-12-24] MEDS: OXYTOCIN 30 UNITS/NS 500 ML 30 UNITS/500 ML BAG IV CONT (05:42)
[2021-12-24 05:43] LABS: Albumin Level 3.6 g/dL (3.5-5.1); Alkaline Phosphatase 111 U/L (38-126); Anion Gap 9 mmol/L (8-16); Aspartate Amino Transferase 22 U/L (14-36); Bilirubin,Total 0.4 mg/dL (0.2-1.3); Blood Urea Nitrogen 6 mg/dL (7-17); Calcium 9.2 mg/dL (8.4-10.2); Carbon Dioxide 19 mmol/L (22-30); Chloride 109 mmol/L (98-107); Estimated Glomerular Filt Rate > 60; Glucose 139 mg/dL (65-110); Potassium 3.5 mmol/L (3.4-5.0); Sodium 137 mmol/L (137-145)
[2021-12-24 05:48] LABS: Alanine Aminotransferase 22 U/L (6-35)
[2021-12-24] MEDS: AMPICILLIN 2 GM/NS 100 ML 2 GM/100 ML BAG IVPB (05:56)
--- NOTE | 2021-12-24 08:54 | WPDHPUPDATE1 ---
History and Physical Update Update Date/Time: 12/24/21 08:54 this patient is a 30-year-old 4 para 3003 at 39 weeks gestation who presents for elective induction of labor. Artificial ruptures of membranes was performed. Clear fluid. She is 2 cm 70% and -3. Pitocin has been started. Expected management. History and Physical has been reviewed, including an updated exam of the patient. There are NO changes in the patient's condition. Risks, benefits, and alternatives have been discussed and questions answered. Patient agrees to proceed with procedure.
[2021-12-24 10:10] LABS: Glucose Point of Care 105 mg/dl (65-105)
[2021-12-24] MEDS: AMPICILLIN 1 GM/NS 50 ML 1 GM/50 ML BAG IVPB ×2 (10:16→13:40)
[2021-12-24 14:41] LABS: Glucose Point of Care 119 mg/dl (65-105)
[2021-12-24 18:03] LABS: Glucose Point of Care 86 mg/dl (65-105)
--- NOTE | 2021-12-24 18:17 | PM.GYNPNOP ---
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 Time Spent With Patient Time: Total time spent is greater than 50% in coordination of care (as documented) at patient's floor/unit and/or counseling patient: Time with patient: less than 15 minutes PIPE SMOKING MACHINE OPERATOR- PN:Subj Post-Op Subjective Date/time seen: 12/24/21 18:17 moderate pain, tolerating it well, regular contractions, pressure PIPE SMOKING MACHINE OPERATOR - PN: Obj Data Vital Signs Vital Signs: Vital Signs - 24 hr 12/24/21 05:12 12/24/21 05:46 12/24/21 06:01 Temperature Pulse Rate 107 H 112 H 102 H Blood Pressure 139/91 H 130/75 132/89 Oxygen Delivery 12/24/21 06:09 12/24/21 05:30 12/24/21 06:16 Temperature 97.4 F L Pulse Rate 116 H 106 H Blood Pressure 139/94 H 121/77 Oxygen Delivery 12/24/21 06:31 12/24/21 06:46 12/24/21 06:30 Temperature 97.1 F L Pulse Rate 105 H 114 H Blood Pressure 122/78 129/77 Oxygen Delivery 12/24/21 07:01 12/24/21 07:16 12/24/21 07:31 Temperature Pulse Rate 101 H 97 101 H Blood Pressure 116/60 121/72 129/79 Oxygen Delivery 12/24/21 07:46 12/24/21 08:47 12/24/21 09:01 Temperature Pulse Rate 103 H 106 H 104 H Blood Pressure 125/76 136/93 H 135/74 Oxygen Delivery 12/24/21 09:31 12/24/21 10:01 12/24/21 10:15 Temperature 97.5 F L Pulse Rate 106 H 98 Blood Pressure 121/74 118/91 H Oxygen Delivery 12/24/21 10:31 12/24/21 11:01 12/24/21 11:31 Temperature Pulse Rate 105 H 103 H 105 H Blood Pressure 120/75 129/83 128/73 Oxygen Delivery 12/24/21 12:01 12/24/21 12:31 12/24/21 13:01 Temperature Pulse Rate 123 H 106 H 96 Blood Pressure 122/49 L 119/57 L 123/76 Oxygen Delivery 12/24/21 13:31 12/24/21 14:01 12/24/21 14:31 Temperature Pulse Rate 118 H 87 107 H Blood Pressure 137/81 120/69 119/76 Oxygen Delivery 12/24/21 14:00 12/24/21 15:01 12/24/21 15:31 Temperature 97.2 F L Pulse Rate 103 H 107 H Blood Pressure 114/65 117/72 Oxygen Delivery 12/24/21 16:01 12/24/21 16:31 12/24/21 17:01 Temperature Pulse Rate 94 104 H 122 H Blood Pressure 118/74 106/54 L 128/53 L Oxygen Delivery 12/24/21 17:31 12/24/21 18:09 12/24/21 05:15 Temperature Pulse Rate 114 H 126 H Blood Pressure 118/58 L 141/118 H Oxygen Delivery Room Air 12/24/21 07:09 Temperature Pulse Rate Blood Pressure Oxygen Delivery Room Air Intake/Output Intake/Output: Intake & Output 12/21/21 12/22/21 12/23/21 12/24/21 23:59 23:59 23:59 23:59 Intake Total 1050 Balance 1050 Meds/Results Medications: Active Medications Generic Name Dose Route Start Last Admin Trade Name Freq PRN Reason Stop Dose Admin Fentanyl Citrate 50 mcg 12/24/21 05:03 Fentanyl Citrate Inj (*Crx) 100 Mcg/2 Ml Vial IV PUSH Q1H PRN Pain Rated 5 or Less Fentanyl Citrate 100 mcg 12/24/21 05:03 Fentanyl Citrate Inj (*Crx) 100 Mcg/2 Ml Vial IV PUSH Q1H PRN Pain Rated 6 or Greater Lactated Ringer's 1,000 mls @ 125 mls/hr 12/24/21 05:05 12/24/21 13:01 Lr - Lactated Ringers Iv IV CONT 125 mls/hr .Q8H LASHELL Administration Oxytocin/Sodium Chloride 30 units in 500 mls @ 125 mls/hr 12/24/21 05:03 Oxytocin 30 Units/Ns 500 Ml IV CONT .Q4H PRN if not received in labor Oxytocin/Sodium Chloride 30 units in 500 mls @ 2 mls/hr 12/24/21 05:05 12/24/21 05:42 Oxytocin 30 Units/Ns 500 Ml IV CONT 2 mls/hr .Q24H LASHELL Administration Oxytocin/Sodium Chloride 30 units in 500 mls @ 999 mls/hr 12/24/21 05:03 Oxytocin 30 Units/Ns 500 Ml IV CONT .Q31M PRN if not received in labor Ampicillin Sodium 1 gm in 50 mls @ 100 mls/hr 12/24/21 10:00 12/24/21 13:40 Ampicillin 1 Gm/Ns 50 Ml IVPB 100 mls/hr Q4H LASHELL Administration Naloxone HCl 0.1 mg 12/24/21 05:03 Naloxon
--- NOTE | 2021-12-24 20:10 | PM.OBPRVD ---
OB - Delivery Note Procedure Procedure: Induction method: AROM and Per Pitocin Protocol Delivery monitor: External FHT and External Uterine Route of delivery: Episiotomy description: None Laceration Description: None Quantitative Blood Loss (ml): 250 Anesthesia type: None Disposition: Floor Baby Date of : 12/24/21 Time of : 20:00 Weeks of gestation at delivery: 39 Weight (pounds): 6 Weight (ounces): 0 Placenta delivery description: Spontaneous score one minute: 9 score five minutes: 9
[2021-12-24] MEDS: OXYTOCIN 30 UNITS/NS 500 ML 30 UNITS/500 ML BAG 125 UNITS IV CONT (20:21)
--- NOTE | 2021-12-24 22:13 | PC.NURSE ---
Patient transferred to post room #284 per wheelchair from labor and delivery. Support person present. Oriented to unit, room, information board, rooming in, admission packet and security measures. Patient verbalizes understanding.
[2021-12-25 03:00] VITALS: BP 112/71; PULSE 88; RESP 18; TEMP 35.9
[2021-12-25 05:21] LABS: Hematocrit 37.4 % (37.0-47.0); Hemoglobin 12.3 g/dL (12.0-15.0)
[2021-12-25 08:00] VITALS: BP 121/78; PULSE 88; RESP 16; TEMP 36.5; O2SAT 100
[2021-12-25] MEDS: MULTIVIT/MIN/PREN/FOL AC/IRON TABLET 1 TAB PO (08:02)
[2021-12-25] MEDS: IBUPROFEN 600 MG TABLET PO ×2 (08:07→21:06)
--- NOTE | 2021-12-25 08:08 | WPDANLDPN2 ---
Anes-Prog Note L&D Date/Time: 12/25/21 08:08 Comfortable throughout: labor Neuraxial method: epidural Epidural/Spinal procedure site: clean & non-tender Neuro status: Neuro function grossly intact. Cardiovascular status: normal Respiratory status: normal Airway patency: baseline Mental status: baseline Post-Op hydration status: normal Vital Signs: Last Vital Signs Temp 35.9 C L 12/25/21 03:00 Pulse 88 12/25/21 03:00 Resp 18 12/25/21 03:00 BP 112/71 12/25/21 03:00 O2 Del Method Room Air 12/24/21 18:30 Pain score (VAS): 3 I/O: Intake & Output 12/24/21 12/25/21 12/25/21 23:59 07:59 15:59 Intake Total 500 Output Total 300 Balance -300 500 Patient feedback: Patient satisfied with anesthetic care.
--- NOTE | 2021-12-25 10:08 | PC.NURSE ---
Patient instrusted on viewing the discharge video Mother & Baby Care, The First Two Weeks . Patient was given the opportunity and encouraged to ask questions. Patient verbalized understanding of information shared and has been given the mother/baby guide for home reference.
--- NOTE | 2021-12-25 10:31 | PM.OBPNVD ---
OB - PN: Subj Subjective Date/time seen: 12/25/21 10:31 s/p vaginal delivery day 1, would like to go home OB - PN: Obj Data Labs CBC & Chem 7: 12/25/21 05:13 12/24/21 05:12 Labs: Laboratory Results - last 24 hr 12/24/21 12/24/21 12/25/21 14:20 18:01 05:13 Hgb 12.3 Hct 37.4 POC Capillary Glucose 119 H 86 OB - PN A/P Plan day: 1 Plan: routine care and discharge home Time Spent With Patient Time: Total time spent is greater than 50% in coordination of care (as documented) at patient's floor/unit and/or counseling patient: Review of Systems Review of Systems: All systems reviewed & are unremarkable except as noted in HPI and below Exam Const: General: cooperative, healthy appearing and comfortable
--- NOTE | 2021-12-25 10:34 | PM.OBDSVD ---
DS: Admitting Diagnosis Discharge Date 12/25/21 Admitting Diagnosis IOL OB - DS: Summary OB Procedures : None OB Procedures Intrapartum: Spontaneous Vag Delivery OB Procedures: : None Time Spent with Patient Time attestation: Total time spent providing and/or coordinating discharge services: DS: Data Data Completed and Pending Labs on day of discharge: Labs from last 24 hours 12/25/21 12/24/21 12/24/21 05:13 18:01 14:20 Hgb 12.3 Hct 37.4 POC Capillary Glucose 86 119 H Discharge Plan Discharge Attending physician on discharge: Wendy Ornelas Discharging Clinician: Kassandra Brand Patient Disposition: Home, Self-Care Activity: pelvic rest Diet: regular Patient Instructions: Antibiotic Form Stand Alone Forms: General Discharge Information Follow-up/Referrals: Wendy Ornelas MD [Physician] - 4 Weeks Discharge Medications: New ibuprofen 600 mg Tablet 600 mg PO Q6H PRN (Reason: Cramping) Qty: 30 0RF Continued One A Day Women's DHA 28 mg iron- 800 mcg Combo Pack 1 pkg PO DAILY Discontinued metformin 850 mg Tablet 850 mg PO BID Label Comments: Pt routinely takes q8h Rx Instructions: ;850 mg orally zdbifhacnv-xhrvesftrcjcj-ekqp [Fioricet] 50-325-40 mg Tablet 1 tablet PO Q6H PRN (Reason: Headache) aspirin 81 mg Tablet,Chewable 81 mg PO DAILY metoclopramide HCl [Reglan] 10 mg Tablet 10 mg PO Q6-8H Rx Instructions: Pt states takes every 8H routinely Benadryl 25 mg 25 mg PO TID Rx Instructions: Pt states take 25 mg benadryl with reglan every 8 hours for STAHL and then takes 50 mg Benadryl at HS for sleep Date of admission: 12/24/21 04:51 Primary Care Provider: UNKNOWN,DOCTOR Admitting Provider: Wendy Ornelas Attending physician on admission: Wendy Ornelas Condition: Stable
[2021-12-25 12:15] VITALS: BP 123/92; PULSE 103; RESP 16; TEMP 36.4; O2SAT 100
[2021-12-25 16:00] VITALS: PULSE 90; RESP 18; TEMP 36.9; O2SAT 100
[2021-12-25 18:40] VITALS: BP 138/93; PULSE 101; RESP 16; TEMP 36.7; O2SAT 98
[2021-12-25 19:24] VITALS: BP 129/82
[2021-12-26 03:00] VITALS: BP 122/69; PULSE 91; RESP 16; TEMP 36.4; O2SAT 100
[2021-12-26 05:56] LABS: Rapid Plasma Reagin Non-Reactive (NonReactive)
[2021-12-26] MEDS: MULTIVIT/MIN/PREN/FOL AC/IRON TABLET 1 TAB PO (08:17)
--- NOTE | 2021-12-26 08:21 | PM.OBDSVD ---
DS: Admitting Diagnosis Discharge Date 12/26/21 Admitting Diagnosis term gestation OB - DS: Summary OB Procedures : None OB Procedures Intrapartum: Spontaneous Vag Delivery OB Procedures: : None Time Spent with Patient Time attestation: Total time spent providing and/or coordinating discharge services: DS: Data Data Completed and Pending Labs on day of discharge: Labs from last 24 hours 12/24/21 05:12 RPR Non-reactive Discharge Plan Discharge Attending physician on discharge: Wendy Ornelas Discharging Clinician: Kassandra Brand Patient Disposition: Home, Self-Care Activity: pelvic rest Diet: regular Discharge Instructions: Education: Mom and Baby Guide Given to: Mother Follow-Up: Call your delivering provider's office for an appointment to be seen in: 4 Weeks Mom and baby should come to the [facility] for the follow-up appointment. Appointment Date/Time: December 28, 2021 at 9:00 am What to expect at your follow-up visit: Blood Pressure Check Physical Assessment Call [phone] if you are unable to keep your appointment time. BREAST CARE: * Wear a snug supportive bra. * For engorgement discomfort: Breast Feeding: * Apply warm moist washcloths * Express milk as needed to relieve engorgement * Wear loose clothing Bottle Feeding: * May apply ice packs * For sore nipples: * Identify correct latch-on * Apply warm moist washcloths before and after nursing * Air dry nipples after nursing * May apply Lansinoh cream to nipples PERINEAL CARE: * Until bleeding stops, use your petra bottle after urinating * Change your pad frequently throughout the day * You may take sitz baths several times a day (fill your bathtub with warm water and soak for 20 minutes.) Do NOT bathe in the water * No tub baths until seen by your physician - You may shower ACTIVITY: * Rest as much as possible. * Do not exercise or lift anything heavier than your baby (such as laundry or other children.) * Avoid stairs or driving as much as possible. * Do not put anything into the vagina. No douching, tampons, or sexual activity until seen by physician. NOTIFY PHYSICIAN IF YOU HAVE ANY QUESTIONS OR IF ANY OF THE FOLLOWING SYMPTOMS OCCUR: * If your episiotomy or incision becomes red, swollen, or more painful than what you have experienced in the hospital. * If your vaginal bleeding becomes foul smelling. * If your vaginal bleeding becomes more heavy than a period or if your bleeding changes from pink to bright red. However, you may pass an occasional walnut-sized clot once or twice for the first week . * If you experience a sharp, shooting pain in you calves. * If you discover a hard, reddened area on your breast or if you experience flu-like symptoms. DIET: * Eat regular, well-balanced meals. * Drink plenty of fluids daily. If , drink to thirst. Patient Instructions: Caring for Your Baby (DC), Vaginal Delivery (DC) Stand Alone Forms: General Discharge Information Follow-up/Referrals: Wendy Ornelas MD [Physician] - 4 Weeks Discharge Medications: New ibuprofen 600 mg Tablet 600 mg PO Q6H PRN (Reason: Cramping) Qty: 30 0RF Continued One A Day Women's DHA 28 mg iron- 800 mcg Combo Pack 1 pkg PO DAILY Discontinued metformin 850 mg Tablet 850 mg PO BID Label Comments: Pt routinely takes q8h Rx Instructions: ;850 mg orally jdrbrqylnv-hftfovkyyeacy-ozpi [Fioricet] 50-325-40 mg Tablet 1 tablet PO Q6H PRN (Reason: Headache) aspirin 81 mg Tablet,Chewable 81 mg PO DAILY metoclopramide HCl [Reglan] 10 mg Tablet 10 mg PO Q6-8H Rx Instructions: Pt states takes every 8H routinely Benadryl 25 mg 25 mg PO TID Rx Instructions: Pt states take 25 mg benadryl with reglan every 8 hours for STAHL and then takes 5
[2021-12-28 08:50] VITALS: BP 122/76; PULSE 101; RESP 20; TEMP 37.2; O2SAT 99
== END 2021-12-26 08:25 | disposition home or self-care (01) | DRG 807 ==
LOC: ANHLDR 04:55 → ANHOB2 22:41
PROVIDERS: Admitting Provider Obstetrics & Gynecology; Visit Provider Obstetrics & Gynecology
DX: O24.429 Gestational diabetes mellitus in childbirth, unspecified control (principal); Z37.0 Single live birth; O13.4 Gestational [pregnancy-induced] hypertension without significant proteinuria, complicating childbirth; O62.3 Precipitate labor; Z3A.37 37 weeks gestation of pregnancy; Z86.16 Personal history of COVID-19
CPT/HCPCS: 36415; 80053; 82948; 85014; 85018; 85025; 86592; 86850; 86900; 86901; A9270; J0290; J2590; J7120

== ENCOUNTER 2022-02-26 13:49 | Emergency (ER) | payer OTHER, SELFPAY ==
--- NOTE | 2022-02-26 13:51 | ED.EYEPROB ---
HPI - Eye Problem General Chief complaint: Eye Problems Stated complaint: stye in left eye Time Seen by Provider: 02/26/22 13:51 Source: patient and RN notes reviewed History of Present Illness HPI Narrative: Patient is a 31-year-old female who presents to the urgent care with complaints of a stye to the left eye. Patient states it started on Sunday and swelled up like this this morning. Patient states that it is itchy, was matted and she has been using qxec-cid-byylaua drops without any relief. Patient states she wears glasses and denies of any trauma to the eye. Denies any vision changes. No other acute complaints. No acute distress noted. Patient aware of the plan of care. Some parts of this dictation were generated by voice recognition software and may contain typographical and/or grammatical inaccuracies. Related Data Allergies Allergy/AdvReac Type Severity Reaction Status Date / Time No Known Allergies Allergy Verified 11/15/21 15:10 Review of Systems Review of Systems: CONSTITUTIONAL: Denies fever, chills, or sweats. EYES: Reports of redness, matting, drainage and mild swelling to the left lower eyelid ENT: Denies rhinorrhea, congestion, sore throat, or otalgia. CARDIOVASCULAR: Denies chest pain, palpitations, or edema. RESPIRATORY: Denies cough or dyspnea. GASTROINTESTINAL: Denies abdominal pain, nausea, vomiting, or diarrhea. GENITOURINARY: Denies dysuria or hematuria. SKIN: Denies rash or itching. MUSCULOSKELETAL: Denies back pain, joint pain, or myalgia. NEUROLOGIC: Denies headache, numbness, or weakness. All other systems reviewed are negative, except as documented in HPI. [facility] Family History Family History Grandparent Ovarian cancer High cholesterol Parkinson disease Social History Social History Smoking status: Never smoker Second hand tobacco smoke exposure: No Substance use: never Spiritual care concerns: No Comments At the time of my signature, I reviewed and agree with the nursing past medical, surgical, social, and family history. There is no relevant family history pertinent to the patient complaint. Exam Narrative: GENERAL: This is a well-nourished, well-developed patient, in no apparent distress. HEAD: normocephalic, atraumatic. EYES: PERRL. Sclera clear/white. Vision is grossly intact. Moderately injected left conjunctive a with mild edema and erythema noted to the left lower eyelid with moderate tenderness. Internal hordeolum to the left lower eyelid EARS: External ears normal NOSE: External nose normal with no obvious nasal discharge, nares without redness, no rhinorrhea. THROAT: Mucous membranes moist NECK: Neck supple SKIN: warm, intact with no suspicious lesions or rash, good texture and turgor. NEURO: awake, alert, and oriented to person, place and time. There were no obvious focal neurologic abnormalities. EXTREMITIES: No clubbing, cyanosis, or edema. Course Course Level of Care: Express Care Visit Vital Signs Vital signs: Vital Signs Temperature 98.1 F 02/26/22 13:54 Pulse Rate 100 02/26/22 13:54 Respiratory Rate 20 02/26/22 13:54 Blood Pressure 135/88 02/26/22 13:54 Pulse Oximetry 99 02/26/22 13:54 Oxygen Delivery Room Air 02/26/22 13:54 Temperature 98.1 F 02/26/22 13:54 Pulse Rate 100 02/26/22 13:54 Respiratory Rate 20 02/26/22 13:54 Blood Pressure 135/88 02/26/22 13:54 Pulse Oximetry 99 02/26/22 13:54 Oxygen Delivery Room Air 02/26/22 13:54 Reviewed MDM - Eye Problem MDM Narrative Medical decision making narrative: Advised the patient to use the eyedrops to the left eye as directed. Use a warm compress to the eye for comfort. If you develop any increase in swelling associated with pain or changes in vision?go to the emergency room. If you have no resolution in 3 days, follow-up with your ophthalmol
[2022-02-26 13:54] VITALS: BP 135/88; PULSE 100; RESP 20; TEMP 36.7; O2SAT 99
== END 2022-02-26 14:18 | disposition home or self-care (01) ==
PROVIDERS: Emergency Provider Nurse Practitioner Family
DX: H00.025 Hordeolum internum left lower eyelid (principal)
CPT/HCPCS: 99213; G0463

== ENCOUNTER 2022-06-22 10:27 | Emergency (ER) | payer OTHER, SELFPAY ==
--- NOTE | 2022-06-22 10:31 | ED.URI ---
HPI - URI/Sore Throat General Chief Complaint: Upper Respiratory Infection Stated Complaint: sinus infection Time Seen by Provider: 06/22/22 10:32 Source: patient and RN notes reviewed History of Present Illness HPI Narrative: patient is a 31-year-old female who presents to urgent care with complaints of sinus pressure, pain, headaches, congestion and postnasal drainage. Patient states it started approximately 2 weeks ago. States that she has been taking Sudafed and Benadryl. Patient is nursing a 6-month-old. States that she has had some intermittent low-grade fevers. Denies any shortness of breath, cough. Denies any ill exposures. No other acute complaints. Patient appears fatigued but otherwise no acute distress noted. Patient aware of the plan of care. Some parts of this dictation were generated by voice recognition software and may contain typographical and/or grammatical inaccuracies. Related Data Allergies Allergy/AdvReac Type Severity Reaction Status Date / Time No Known Allergies Allergy Verified 11/15/21 15:10 Review of Systems Review of Systems: CONSTITUTIONAL: Denies fever, chills, or sweats. EYES: Denies visual changes, redness, or discharge. ENT: Reports of congestion, sinus pressure, postnasal drainage CARDIOVASCULAR: Denies chest pain, palpitations, or edema. RESPIRATORY: Denies cough or dyspnea. GASTROINTESTINAL: Denies abdominal pain, nausea, vomiting, or diarrhea. GENITOURINARY: Denies dysuria or hematuria. SKIN: Denies rash or itching. MUSCULOSKELETAL: Denies back pain, joint pain, or myalgia. NEUROLOGIC: Denies headache, numbness, or weakness. All other systems reviewed are negative, except as documented in HPI. [facility] Family History Family History Grandparent Ovarian cancer High cholesterol Parkinson disease Social History Social History Smoking status: Never smoker Second hand tobacco smoke exposure: No Substance use: never Spiritual care concerns: No Comments At the time of my signature, I reviewed and agree with the nursing past medical, surgical, social, and family history. There is no relevant family history pertinent to the patient complaint. Exam Narrative: GENERAL: This is a well-nourished, well-developed patient. Appears fatigued HEAD: normocephalic, atraumatic. moderate frontal sinus tenderness EYES: PERRL. Sclera clear/white. Vision is grossly intact. EARS: External ears normal, auditory canals clear and without drainage, TMs normal without perforation. Hearing grossly intact. NOSE: External nose normal with no obvious nasal discharge, nares without redness, clear rhinorrhea. THROAT: Mucous membranes moist, posterior pharynx clear. moderate postnasal drainage NECK: Neck supple, non-tender without lymphadenopathy CARDIOVASCULAR: Regular rate and rhythm without murmurs, gallops, or rubs. RESPIRATORY: Clear to auscultation. Breath sounds equal bilaterally. No wheezes, rales, or rhonchi. GASTROINTESTINAL: Abdomen soft, suprapubic tenderness, nondistended. Bowel sounds are active. SKIN: warm, intact with no suspicious lesions or rash, good texture and turgor. NEURO: awake, alert, and oriented to person, place and time. There were no obvious focal neurologic abnormalities. EXTREMITIES: No clubbing, cyanosis, or edema. BACK: right CVA tenderness Course Course Level of Care: Express Care Visit Vital Signs Vital signs: Vital Signs Temperature 98.5 F 06/22/22 10:35 Pulse Rate 94 06/22/22 10:35 Respiratory Rate 16 06/22/22 10:35 Blood Pressure 136/86 06/22/22 10:35 Pulse Oximetry 99 06/22/22 10:35 Oxygen Delivery Room Air 06/22/22 10:35 Temperature 98.5 F 06/22/22 10:35 Pulse Rate 94 06/22/22 10:35 Respiratory Rate 16 06/22/22 10:35 Blood Pressure 136/86 06/22/22 10:35 Pulse Oximetry 99 06/22/22 10:35 Oxygen
[2022-06-22 10:35] VITALS: BP 136/86; PULSE 94; RESP 16; TEMP 36.9; O2SAT 99
== END 2022-06-22 11:12 | disposition home or self-care (01) ==
PROVIDERS: Emergency Provider Nurse Practitioner Family
DX: J32.9 Chronic sinusitis, unspecified (principal)
CPT/HCPCS: 99213; G0463

== ENCOUNTER 2022-08-10 09:02 | Emergency (ER) | payer OTHER, SELFPAY ==
--- NOTE | 2022-08-10 09:07 | ED.URI ---
HPI - URI/Sore Throat General Chief Complaint: Upper Respiratory Infection Stated Complaint: Sore Throat Time Seen by Provider: 08/10/22 09:07 Source: patient and RN notes reviewed History of Present Illness HPI Narrative: Patient is a 31-year-old female who presents to urgent care with complaints of a sore throat for 2 days. Patient states her symptoms started on Sunday with body aches, vomiting and fever on Sunday. Patient was on antibiotics, amoxicillin and steroids June 22 for sinusitis. Patient states that she has continuously had a runny nose and postnasal drainage and which she occasionally takes Claritin or Zyrtec. Patient has also taken ibuprofen and Tylenol at that time. Currently denies of any nausea, vomiting or fever. No other acute complaints. No acute distress noted. Patient aware of the plan of care. Some parts of this dictation were generated by voice recognition software and may contain typographical and/or grammatical inaccuracies. Related Data Allergies Allergy/AdvReac Type Severity Reaction Status Date / Time No Known Allergies Allergy Verified 11/15/21 15:10 Review of Systems Review of Systems: CONSTITUTIONAL: Denies fever, chills, or sweats. EYES: Denies visual changes, redness, or discharge. ENT: Reports congestion, rhinorrhea, sore throat CARDIOVASCULAR: Denies chest pain, palpitations, or edema. RESPIRATORY: Denies cough or dyspnea. GASTROINTESTINAL: Denies abdominal pain, nausea, vomiting, or diarrhea. GENITOURINARY: Denies dysuria or hematuria. SKIN: Denies rash or itching. MUSCULOSKELETAL: Denies back pain, joint pain, or myalgia. NEUROLOGIC: Denies headache, numbness, or weakness. All other systems reviewed are negative, except as documented in HPI. [facility] Family History Family History Grandparent Ovarian cancer High cholesterol Parkinson disease Social History Social History Smoking status: Never smoker Second hand tobacco smoke exposure: No Substance use: never Spiritual care concerns: No Comments At the time of my signature, I reviewed and agree with the nursing past medical, surgical, social, and family history. There is no relevant family history pertinent to the patient complaint. Exam Narrative: GENERAL: This is a well-nourished, well-developed patient, in no apparent distress. HEAD: normocephalic, atraumatic. EYES: PERRL. Sclera clear/white. Vision is grossly intact. EARS: External ears normal, auditory canals clear and without drainage, TMs normal without perforation. Hearing grossly intact. NOSE: External nose normal with no obvious nasal discharge, nares without redness, no rhinorrhea. THROAT: Mucous membranes moist, mild erythema to posterior pharynx with mild postnasal drainage. NECK: Neck supple, mild right tender submandibular lymphadenopathy CARDIOVASCULAR: Regular rate and rhythm without murmurs, gallops, or rubs. RESPIRATORY: Clear to auscultation. Breath sounds equal bilaterally. No wheezes, rales, or rhonchi. SKIN: warm, intact with no suspicious lesions or rash, good texture and turgor. NEURO: awake, alert, and oriented to person, place and time. There were no obvious focal neurologic abnormalities. EXTREMITIES: No clubbing, cyanosis, or edema. Course Course Level of Care: Express Care Visit Vital Signs Vital signs: Vital Signs Temperature 97.2 F L 08/10/22 09:09 Pulse Rate 98 08/10/22 09:09 Respiratory Rate 16 08/10/22 09:09 Blood Pressure 123/77 08/10/22 09:09 Pulse Oximetry 99 08/10/22 09:09 Oxygen Delivery Room Air 08/10/22 09:09 Temperature 97.2 F L 08/10/22 09:09 Pulse Rate 98 08/10/22 09:09 Respiratory Rate 16 08/10/22 09:09 Blood Pressure 123/77 08/10/22 09:09 Pulse Oximetry 99 08/10/22 09:09 Oxygen Delivery Room Air 08/10/22 09:09 Reviewed MDM - URI/Sore Throat MDM Bola
[2022-08-10 09:09] VITALS: BP 123/77; PULSE 98; RESP 16; TEMP 36.2; O2SAT 99
== END 2022-08-10 09:35 | disposition home or self-care (01) ==
PROVIDERS: Emergency Provider Nurse Practitioner Family; PCP Emergency Medicine
DX: B34.9 Viral infection, unspecified (principal)
CPT/HCPCS: 87081; 87880; 99213; G0463

== ENCOUNTER 2023-11-30 01:23 | Day surgery (SDC) | payer OTHER, SELFPAY ==
[2023-11-29 12:06] VITALS: BMI 25.4
--- NOTE | 2023-11-29 12:19 | SUR.PREOP ---
Report to the Outpatient Waiting Room, entrance under the green pavilion located off [facility], at time 0830 on date 11/30/23. Planned Procedure Time: 1030. Time changes happen often and if your time is changed the preop area will call you the afternoon before. - You and your visitor will be asked to self-screen and do not enter if you have any COVID symptoms. - A mask is optional within the hospital at this time. Patients may have clear liquids (water, carbonated beverages, clear teas, apple juice) until 3 hours prior to surgery with a maximum of 20 ounces. - No food from midnight until time of surgery Take the following medications with a SIP of water the morning of surgery: SERTRALINE DO NOT STOP ANY OF YOUR OTHER PRESCRIPTION MEDICATIONS PRIOR TO SURGERY ?EXCEPT THE FOLLOWING Medications to discontinue per physician N/A Date to take last dose N/A Please no make-up, nail somali, hairspray, perfume, deodorant, or body powder the day of surgery. No jewelry (including any body piercings) or valuables the day of surgery, leave them at home. Please take a shower or bath the night before, or the morning of, surgery with an antibacterial soap. Wear comfortable, loose fitting clothing. Children are encouraged to wear pajamas. - Jewelry must be removed prior to entering the operating room. Rings and piercings that are not removed may be cut off. - The hospital will not accept responsibility for valuables. - Please leave all valuables, including medications, at home the day of surgery. If you are going home after surgery, a licensed dinkey driver must drive you home. - NO public transportation without another adult if you receive anesthesia. - We recommend that an adult stay with you for 24 hours following discharge. - We also recommend that you do not drive, make important decision, drink alcoholic beverages, or take any drugs that were not prescribed by your health care provider for at least 24 hours after your discharge time. Follow any additional instructions given to you from your surgeon. If you or anyone in your household have experienced Covid symptoms in the past week, please notify your surgeon or the nurse liaison at the phone number below for possible testing. Telephone instructions given to HONG BROWNE and asked if any additional questions and then verbalized understanding. Patient advised to call surgeon office or pre surgery nurse liaison [phone] if any additional questions.
[2023-11-30] VITALS (10 sets, daily range): BP systolic 94–127; BP diastolic 50–77; PULSE 66–96; RESP 12–18; TEMP 36.2–37.2; O2SAT 98–100
--- NOTE | 2023-11-30 09:28 | PM.OBTRLD ---
OB - Triage/Final Diagnosis Visit Information Comments/Additional reasons for admission: I have assessed the risk for this patient, Amber aZragoza, and determined that she would benefit from observation care. Evaluation Vital signs: Vital Signs - 24 hr 11/30/23 09:01 Temperature 97.2 F L Pulse Rate 96 Respiratory Rate 18 Blood Pressure 127/77 Pulse Oximetry 100 Oxygen Delivery Room Air
[2023-11-30] MEDS: ACETAMINOPHEN 500 MG TABLET 1000 MG PO (09:30)
[2023-11-30] MEDS: KETOROLAC 15 MG/ML VIAL (*BKC) IV PUSH (09:30)
--- NOTE | 2023-11-30 10:08 | WPDANESEPPF ---
Anes - Initial Pre Proc Eval Procedure: Operation Date: 11/30/23 10:30 Proposed Procedures p Laparoscopic Bilateral Salpingectomy, Right Ovarian Cystectomy - Adam Ornelas MD Date/Time: 11/30/23 10:08 Surgeon: Adam Ornelas MD Pre Op Diagnosis: Female Shayla, Cyst Right Ovary Patient Data Age: 32 Gender: F Height: 1.52 m Weight: 58.97 kg Last Vital Signs Temp 97.2 F L 11/30/23 09:01 Pulse 96 11/30/23 09:01 Resp 18 11/30/23 09:01 BP 127/77 11/30/23 09:01 Pulse Ox 100 11/30/23 09:01 O2 Del Method Room Air 11/30/23 09:01 Allergies Allergy/AdvReac Type Severity Reaction Status Date / Time No Known Allergies Allergy Verified 11/30/23 08:47 Home Medications Medication Instructions Recorded Confirmed Type sertraline 50 mg tablet 150 mg PO HS 11/29/23 11/30/23 History Patient hx anesthesia problems: none Family hx anesthesia problems: none Results Review: All pre-operative results and documents have been reviewed as part of the pre-operative evaluation. [facility] Family History Family History Grandparent Ovarian cancer High cholesterol Parkinson disease Social History Social History Smoking status: Never smoker Second hand tobacco smoke exposure: No Substance use: never Living arrangements: with family Spiritual care concerns: No Anes - Eval Final PreProcedure Day of Procedure 11/30/23 10:08 Patient weight: normal Heart: regular rate and rhythm Lungs: clear to auscultation Airway: Mallampati scale class II Neurological: alert and oriented Last oral intake: >/= 8 hours ASA classification: II Emergent: no Anesthetic plan: proceed Anesthesia type and monitoring: general ETT and standard monitoring Results Review: All pre-operative results and documents have been reviewed as part of the pre-operative evaluation. Migranes by hx, pt active w cardio/wts, no cp or sob. Informed Consent: The patient's anesthetic plan and its attendant risks and benefits were discussed with the patient/family/POA. Questions were solicited and answers provided to the satisfaction of the patient/family/POA.
--- NOTE | 2023-11-30 10:10 | WPDHPUPDATE1 ---
History and Physical Update Update Date/Time: 11/30/23 10:10 History and Physical has been reviewed, including an updated exam of the patient. There are NO changes in the patient's condition. Risks, benefits, and alternatives have been discussed and questions answered. Patient agrees to proceed with procedure.
[2023-11-30] MEDS: LACTATED RINGERS 1,000 ML 30 ML IV CONT ×2 (11:23)
--- NOTE | 2023-11-30 11:31 | W.PM.PROC2 ---
Procedure Note - Detailed Date of Procedure 11/30/23 Pre-op Diagnosis Female Shayla, Cyst Right Ovary Post-op Diagnosis Same Procedure Performed Laparoscopic bilateral salpingectomy with right ovarian cystectomy. Surgeon Adam Ornelas MD Anesthesia General Indications Unwanted fertility , painful ovarian cyst Findings Normal pelvic anatomy With 7 cm right ovarian cyst Description of Procedure The patient was taken the operating room. She was prepped and draped in the dorsal lithotomy position after induction of general anesthesia. A 5 mm skin incision was made in the left upper quadrant of the abdominal skin. A 5 mm trocar was inserted the intra-abdominal cavity under direct visualization of the scope. Pneumoperitoneum was achieved. A 5 mm trocar was inserted in the left lower quadrant identical fashion. A 5 mm infraumbilical trocar was inserted in identical fashion as well. The bilateral fallopian tubes were removed. This was done by using a LigaSure cautery. The mesosalpinx adjacent to the tube was cauterized transected with LigaSure. This was initiated in the area the ovary and in a stepwise fashion moved medially to the area of the cornu of the uterus. Once there the fallopian tube was cauterized and transected. This was done in identical fashion on each side. The fallopian tubes were taken out through the left lower quadrant trocar site. right ovarian cystectomy was performed. The large cyst was transected At the margin of the ovarian parenchyma. The large cyst capsule was removed along with some Very thin ovarian tissue. the edges of the transected cyst were cauterized. The cyst capsule was removed. The raw surface of the ovary was cauterized where it was bleeding. The pneumoperitoneum was reduced. The trocars removed. The skin was closed with subcuticular 4 Monocryl and covered with Dermabond. She was taken to cover stable condition. Sponge lap and needle counts were correct x2. Estimated Blood Loss 75 Drains No Packing No Pathology Yes Complications No immediate complications Condition Stable Disposition PACU
[2023-11-30] MEDS: oxyCODONE HCL (*CRX) 5 MG TAB IR PO (12:42)
== END 2023-11-30 13:23 | disposition home or self-care (01) ==
PROVIDERS: PCP Emergency Medicine; Visit Provider Obstetrics & Gynecology
PROC: (CPT 49320; principal; 2023-11-30 10:30)
DX: Z30.2 Encounter for sterilization (principal); N83.01 Follicular cyst of right ovary
CPT/HCPCS: 58662; 58661; 88302; 88305; A9270; J1100; J1200; J1885; J2250; J2405; J2704; J3010; J7030; J7120

== ENCOUNTER 2024-04-25 11:36 | Outpatient (CLI) | payer OTHER, SELFPAY | END 2024-04-25 11:37 | disposition home or self-care (01) | PROVIDERS: PCP Internal Medicine Infectious Disease; Visit Provider Obstetrics & Gynecology | DX: N83.209 Unspecified ovarian cyst, unspecified side (principal); Z01.818 Encounter for other preprocedural examination | CPT/HCPCS: 36415; 86850; 86900; 86901 ==

== ENCOUNTER 2024-04-30 01:24 | Day surgery (SDC) | payer OTHER, SELFPAY ==
[2024-04-23 15:05] VITALS: BMI 25.4
--- NOTE | 2024-04-23 15:06 | PC.NURSE ---
Report to the Outpatient Waiting Room, entrance under the green pavilion located off [facility], at time _0600_ on date _[id number]_. Planned Procedure Time: _0730_.? Time changes happen often and if your time is changed the preop area will call you the afternoon before. - You and your visitor will be asked to self-screen and do not enter if you have any COVID symptoms. Please call surgeon if you need to reschedule. - A mask is optional within the hospital at this time. Patients may have clear liquids (water, carbonated beverages, clear teas, apple juice) until 3 hours prior to surgery with a maximum of 20 ounces. - No food from midnight until time of surgery and no smoking Take only the following medications with a SIP of water on the morning of surgery: __Pain medication if needed__ DO NOT STOP ANY OF YOUR OTHER PRESCRIPTION MEDICATIONS PRIOR TO SURGERY EXCEPT THE FOLLOWING Medications to discontinue per physician __None____ Please no make-up, nail amharic, hairspray, perfume, deodorant, or body powder the day of surgery.? No jewelry (including any body piercings) or valuables the day of surgery, leave them at home.? Please take a shower or bath the night before, or the morning of, surgery with an antibacterial soap.? Wear comfortable, loose fitting clothing.? - Jewelry must be removed prior to entering the operating room.? Rings and piercings that are not removed may be cut off. - The hospital will not accept responsibility for valuables.? - Please leave all valuables, including medications, at home the day of surgery. If you are going home after surgery, a licensed vending route driver must drive you home.? - NO public transportation without another adult if you receive anesthesia. - We recommend that an adult stay with you for 24 hours following discharge. - We also recommend that you do not drive, make important decision, drink alcoholic beverages, or take any drugs that were not prescribed by your health care provider for at least 24 hours after your discharge time. Follow any additional instructions given to you from your surgeon. Telephone instructions given to __Amber__and asked if any additional questions and then verbalized understanding. Patient advised to call surgeon office or pre surgery nurse liaison [phone] if any additional questions.
[2024-04-30] VITALS (13 sets, daily range): BP systolic 108–125; BP diastolic 56–86; PULSE 76–105; RESP 10–19; TEMP 36.3–36.9; O2SAT 92–100; BMI 26.0
--- NOTE | ~2024-04-30 | XR_ITS ---
EXAMINATION: XR stent kub - surgery DATE: 04/30/2024 08:32 INDICATION: Bilateral ureteral stent placement TECHNIQUE: 2 fluoroscopic images of the abdomen were obtained during procedure performed by Dr. Reid yañez. Radiologist was not present for the imaging or procedure. The amount of fluoroscopy time used duri ng this procedure was 0.5 minutes. COMPARISON: None. FINDINGS: Images demonstrate the proximal tips of bilateral ureteral stents project over the expected location of the proximal to mid bilateral ureters. IMPRESSION: 1. Thoracic utilized during bilateral ureteral stent placement. See procedure note for further detail . Reviewed, dictated and finalized at location B. ALT TAMPING MACHINE OPERATOR IMPRESSION: 1. Thoracic utilized during bilateral ureteral stent placement. See procedure n ote for further detail.
--- NOTE | 2024-04-30 06:20 | P.CONUR_ITS ---
Assessment and Plan Assessment and plan (1) Polycystic ovary: Code(s): E28.2 - Polycystic ovarian syndrome Status: Acute Assessment and Plan: * Cystoscopy, bilateral ureteral catheterization Urology Consult Note HPI Date Seen: 04/30/24 Requesting Physician: Adam Ornelas MD Primary Care Provider: Marko Carrera, Consult Narrative Narrative: Amber Zaragoza is a 33 year old female scheduled to have laparascopic hysterectomy - we're asked to place bilateral ureteral catheters. Patient has no prior significant urological history. I explained the placement of ureteral catheters to patient as well as the potential risk including, but not limited to, persistent risk of ureteral injury , need for indwelling stent for a period of time and need for additional surgery. Review of Systems Review of Systems: All systems reviewed & are unremarkable except as noted in HPI and below PMFSH Family History Family History Grandparent Ovarian cancer High cholesterol Parkinson disease Social History Social History Smoking status: Never smoker Second hand tobacco smoke exposure: No Substance use: never Living arrangements: with family Spiritual care concerns: No Meds Home Medications and Allergies Home Medications Medication Instructions Recorded Confirmed Type sertraline 50 mg tablet 150 mg PO HS 11/29/23 04/23/24 History oxycodone-acetaminophen 5 mg-325 1 tablet PO Q4H PRN pain #14 tabs 11/30/23 04/23/24 Rx mg tablet wtrxqpfcpl-owitokfgrukxi-dzdrhuio 1 tablet PO Q4H PRN Migraine 04/23/24 04/23/24 History 50 mg-325 mg-40 mg tablet Headache erenumab-aooe 140 mg/mL 140 mg subcut MONTHLY 04/23/24 04/23/24 History subcutaneous auto-injector (Aimovig Autoinjector) Allergies Allergy/AdvReac Type Severity Reaction Status Date / Time No Known Allergies Allergy Verified 04/30/24 06:23 Exam Const: General: no acute distress Resp: Effort & Inspection: normal respiratory effort GI: Inspection: non-distended GI Palp: No abdominal tenderness and No Guarding due to palpation present (GI) Auscultation: normal bowel sounds
--- NOTE | 2024-04-30 06:24 | WPDHPUPDATE1 ---
History and Physical Update Update Date/Time: 04/30/24 06:24 History and Physical has been reviewed, including an updated exam of the patient. There are NO changes in the patient's condition. Risks, benefits, and alternatives have been discussed and questions answered. Patient agrees to proceed with procedure.
[2024-04-30] MEDS: LACTATED RINGERS 1,000 ML 30 ML IV CONT ×3 (06:35→11:27)
[2024-04-30] MEDS: KETOROLAC 15 MG/ML VIAL (*BKC) IV PUSH (06:44)
[2024-04-30] MEDS: ACETAMINOPHEN 500 MG TABLET 1000 MG PO ×3 (06:44→19:04)
--- NOTE | 2024-04-30 06:53 | PM.IMHP ---
H&P: HPI History of Present Illness Date/Time: 04/30/24 06:53 Chief Complaint: Pelvic pain Narrative: this patient is a 33-year-old female with pelvic pain and recurrent ovarian cyst. We agreed to perform total laparoscopic hysterectomy and bilateral salpingo-oophorectomy. The patient understands the details of the procedure. The procedure has been explained in detail. She understands the risks. She understands that injuries may occur that result in hospitalization, more surgery, and severe illness. She understands risk of hemorrhage and infection. She denies any chest pain or shortness of breath. She denies any nausea, vomiting, fever, chills. Review of Systems Review of Systems: All systems reviewed & are unremarkable except as noted in HPI and below Constitutional: Constitutional: Denies chills, Denies fatigue, Denies fever(s) and Denies weakness Eyes: Eyes: Denies blurry vision, Denies change in vision, Denies loss of peripheral vision, Denies loss of vision, Denies other visual disturbances and Denies eye pain ENT: Denies vertigo, Denies dizziness, Denies hearing loss, Denies mouth pain, Denies nasal obstruction, Denies neck mass and Denies neck pain Cardiovascular: Cardiovascular: Denies chest pain, Denies diaphoresis, Denies syncope, Denies leg edema and Denies dyspnea Respiratory: Respiratory: Denies chest congestion, Denies cough, Denies hemoptysis, Denies dyspnea and Denies wheezing Gastrointestinal: Gastrointestinal: Denies abdominal pain, Denies constipation, Denies diarrhea, Denies nausea and Denies vomiting Genitourinary: Genitourinary: Denies hematuria, Denies change in libido, Denies nocturia, Denies genital lesions, Denies flank pain and Denies urinary urgency Musculoskeletal: Musculoskeletal: Denies abnormal gait, Denies back pain, Denies myalgias, Denies arthralgias, Denies joint swelling, Denies muscle weakness and Denies neck pain Integumentary/Breasts: Skin/Breast: Denies swelling, Denies breast pain, Denies breast mass, Denies dry skin, Denies nipple discharge, Denies unusual bruising and Denies jaundice Neurologic: Denies Neuro-related abnormal movements, Denies Abnormal speech present, Denies abnormal gait, Denies behavioral changes, Denies confusion, Denies vertigo, Denies dizziness, Denies syncope, Denies loss of vision, Denies memory loss, Denies convulsions and Denies weakness Psychiatric: Psychiatric: Denies abnormal sleep pattern, Denies behavioral changes, Denies change in libido, Denies confusion, Denies depression, Denies anhedonia and Denies memory loss Endocrine: Endocrine: Reports no additional endocrine complaints, Denies change in libido and Denies fatigue Hematologic/Lymphatic: Hematologic/Lymphatic: Reports no additional hematologic/lymphatic complaints Allergic/Immunologic: Allergic/Immunologic: Reports no additional allergic/immunologic complaints and Denies wheezing [facility] Family History Family History Grandparent Ovarian cancer High cholesterol Parkinson disease Social History Social History Smoking status: Never smoker Second hand tobacco smoke exposure: No Substance use: never Living arrangements: with family Spiritual care concerns: No Meds Home Medications and Allergies Home Medications Medication Instructions Recorded Confirmed Type sertraline 50 mg tablet 150 mg PO HS 11/29/23 04/23/24 History oxycodone-acetaminophen 5 mg-325 1 tablet PO Q4H PRN pain #14 tabs 11/30/23 04/23/24 Rx mg tablet kgbdrtxitu-kefumbdpjifxr-engwjsec 1 tablet PO Q4H PRN Migraine 04/23/24 04/23/24 History 50 mg-325 mg-40 mg tablet Headache erenumab-aooe 140 mg/mL 140 mg subcut MONTHLY 04/23/24 04/23/24 History subcutaneous auto-injector (Aimovig Autoinjector) Allergies Allergy/AdvReac Type Severity Reaction Status Date / Time No Known Allergies Allergy Verified 04/30/24 06:23 Exam Const: General: cooperative, healthy appearing, comfortable and no acute distress Orientation/consciousness: oriented to person, oriented to place and oriented to time HENMT: Head: normal to inspection Ears: external ears normal Face/Nose/Sinus: Normal external nose present and normal facial exam Face and sinus: normal facial exam Eyes: General: appearance normal, both eyes and all related structures Neck: Neck: normal visual inspection, trachea midline and supple Resp: Auscultation: clear to auscultation bilaterally, no crackles, no rales, no rhonchi and no wheezes Cardio: Rate: regular rate Rhythm: regular rhythm Heart sounds: no click, no murmurs and no rubs GI: GI Palp: No abdominal tenderness, No Soft to palpation, No Tenderness to palpation present (GI) and No Palpable mass present Auscultation: normal bowel sounds Skin: General skin exam: normal color and no rashes or lesions noted Neuro: General: oriented to person, oriented to place and oriented to time Extrem: General: normal to inspection, no joint enlargement, no clubbing, cyanosis or edema, no pedal edema and no calf tenderness Psych: Appearance: grossly normal Mental Status: mental status grossly normal Speech and movement: Normal speech and movement present Assessment and Plan Assessment and plan (1) Ovarian cyst: Code(s): N83.209 - Unspecified ovarian cyst, unspecified side Status: Acute (2) Pelvic pain: Code(s): R10.2 - Pelvic and perineal pain Status: Acute Plan this patient is a 33-year-old female with pelvic pain and recurrent ovarian cyst. We agreed to perform total laparoscopic hysterectomy and bilateral salpingo-oophorectomy. she understands risks, benefits, and alternatives. She has completed informed consent process is ready to proceed
--- NOTE | 2024-04-30 06:55 | WPDHPUPDATE1 ---
History and Physical Update Update Date/Time: 04/30/24 06:55 History and Physical has been reviewed, including an updated exam of the patient. There are NO changes in the patient's condition. Risks, benefits, and alternatives have been discussed and questions answered. Patient agrees to proceed with procedure.
--- NOTE | 2024-04-30 07:24 | WPDANESEPPF ---
Anes - Initial Pre Proc Eval Procedure: Operation Date: 04/30/24 07:30 Proposed Procedures p Total Laparoscopic Hysterectomy with Bilateral Salpingo-oophorectomy - Adam Ornelas MD s Stent Placement for Abdominal Surgery - Gerald Burden MD Date/Time: 04/30/24 07:24 Surgeon: Adam Ornelas MD Pre Op Diagnosis: Unspecfied Cyst of Ovary Patient Data Age: 33 Gender: F Height: 1.52 m Weight: 60.55 kg Allergies Allergy/AdvReac Type Severity Reaction Status Date / Time No Known Allergies Allergy Verified 04/30/24 06:23 Home Medications Medication Instructions Recorded Confirmed Type sertraline 50 mg tablet 150 mg PO HS 11/29/23 04/23/24 History oxycodone-acetaminophen 5 mg-325 1 tablet PO Q4H PRN pain #14 tabs 11/30/23 04/23/24 Rx mg tablet cmearrlnnm-hswwuudqumorc-cfrlgdvd 1 tablet PO Q4H PRN Migraine 04/23/24 04/23/24 History 50 mg-325 mg-40 mg tablet Headache erenumab-aooe 140 mg/mL 140 mg subcut MONTHLY 04/23/24 04/23/24 History subcutaneous auto-injector (Aimovig Autoinjector) Patient hx anesthesia problems: none Family hx anesthesia problems: none Results Review: All pre-operative results and documents have been reviewed as part of the pre-operative evaluation. [facility] Family History Family History Grandparent Ovarian cancer High cholesterol Parkinson disease Social History Social History Smoking status: Never smoker Second hand tobacco smoke exposure: No Substance use: never Living arrangements: with family Spiritual care concerns: No Anes - Eval Final PreProcedure Day of Procedure 04/30/24 07:24 Patient weight: normal Heart: regular rate and rhythm Lungs: clear to auscultation Airway: Mallampati scale class II Neurological: alert and oriented Last oral intake: >/= 8 hours ASA classification: II Emergent: no Anesthetic plan: proceed Anesthesia type and monitoring: general ETT and standard monitoring Results Review: All pre-operative results and documents have been reviewed as part of the pre-operative evaluation. Informed Consent: The patient's anesthetic plan and its attendant risks and benefits were discussed with the patient/family/POA. Questions were solicited and answers provided to the satisfaction of the patient/family/POA.
[2024-04-30] MEDS: ceFAZolin 2 GM/D5W 50 ML 2 GM/50 ML BAG IVPB (07:34)
[2024-04-30] MEDS: ceFAZolin SODIUM 1 GM VIAL (07:34)
--- NOTE | 2024-04-30 08:11 | P.OP_ITS ---
Procedure Note - Detailed Date of Procedure 04/30/24 Pre-op Diagnosis Unspecfied Cyst of Ovary Post-op Diagnosis Same Procedure Performed Cystoscopy, bilateral retrograde pyelography, bilateral ureteral catheterization Surgeon Kervin West MD Anesthesia General Description of Procedure patient brought to the operative suite where she was prepped draped in routine sterile fashion while in dorsal lithotomy position after the uneventful induction of a general LMA anesthetic. Cystoscopy was undertaken with a 21 F rigid cystoscope. Bladder neck and urethra endoscopically normal. Bladder mucosa is normal without hyperemia. She has a single orthotopic ureteral orifice. 0.035 in guidewire was advanced in each renal pelvis. Five F open- ended ureteral catheters are placed and appropriate positioning was confirmed by retrograde pyelography. The lighted implant is into each ureteral catheter. A 16 F Ramos catheter was placed to drainage and the ureteral catheters are secured to that
[2024-04-30 08:51] LABS: BEDSIDEPREGUCG Negative (Negative)
--- NOTE | 2024-04-30 09:44 | P.OP_ITS ---
Procedure Note - Detailed Date of Procedure 04/30/24 Pre-op Diagnosis Unspecfied Cyst of Ovary, pelvic pain Post-op Diagnosis Same Procedure Performed Total laparoscopic hysterectomy and bilateral salpingo-oophorectomy. resection fulguration of endometrial implants. Surgeon Adam Ornelas MD Anesthesia General Findings Endometrial implants in the posterior cul-de-sac and on the Perivesical peritoneum. Mildly enlarged bilateral ovaries, normal-appearing uterus and fallopian tubes. Description of Procedure This patient was taken to the operating room. She was prepped and draped in the dorsal lithotomy position after induction of general anesthesia. Ureteral stents were placed by Dr. West The uterine manipulator and Patrick cup were placed. This was done with a speculum and tenaculum. The speculum was placed. The cervix was grasped with a te naculum. The stay sutures were placed at 3 and 9:00 a.m.. The stay sutures of 0 Vicryl were brought through the appropriately sized Patrick cup. The tip of the MARILYNN manipulator was placed in the intrauterine cavity. The cup was slid into place around the cervix and into the fornices. It was locked into place. The sutures were then wrapped around the handle and tied under tension. A 5 mm skin incision was made in the left upper quadrant the abdomen. A 5 mm trocar was inserted into the intrauterine cavity under direct visualization of the scope. Pneumoperitoneum was achieved. A left lower quadrant 11 mm incision was made with scalpel. An 11 mm trocar was inserted into the anterior abdominal cavity under direct visualization the scope. A 5 mm infraumbilical incision was made with a scalpel and a 5 mm trocar was inserted the intra-abdominal cavity under direct visualization of the scope. Endometrial implant on the peritoneum near the bladder was removed with careful sharp and blunt dissection. A posterior cul-de-sac endometrial implant was cauterized. Bilateral ureteral lysis was performed. This was done from the pelvic brim down to the uterine artery. This was done with careful dissection using sharp and blunt dissection. The infundibulopelvic ligaments were isolated after identification of the ureters bilaterally. These infundibulopelvic ligaments were cauterized and transected with LigaSure cautery. The para ovarian tissue was cauterized and transected with LigaSure cautery bilaterally. Moving around the ovary into the broad ligament the tissue was cauterized transected with LigaSure cautery. The round ligaments were cauterized transected with LigaSure cautery this was all done in a bilateral fashion. In a stepwise fashion along the lateral aspects of the uterus the round ligament and broad ligaments were cauterized transected down to the level of the uterine arteries. A bladder flap was created in the bladder was moved distally to the end of the cervix and over the Patrick cup. The bilateral uterine arteries were cauterized and transected. Colpotomy was then performed. In a circumferential fashion the vagina was transected using unipolar cautery. The incision was made down on the Patrick cup. The uterus, cervix, fallopian tubes and ovaries were taken out through the vagina. A pneumo occluder was placed in the vagina. The vaginal cuff was closed with a 0 V lock suture in a running fashion. The pelvis was irrigated with copious amounts antibiotic irrigation. The ureters were again examined and found to be intact and flowing freely under the uterine arteries into the bladder. The vagina was irrigated with Betadine solution after removal of the Pneumo occluder. The patient was taken to recovery room. She was stable condition. Sponge lap and needle counts were correct x2. Estimated Blood Loss 75 Drains Yes Packing No Pathology Yes Complications No immediate complications Condition Stable Disposition Floor
[2024-04-30] MEDS: fentaNYL CITRATE INJ (*CRX) 100 MCG/2 ML VIAL 25 MCG IV PUSH ×8 (10:04→10:40)
[2024-04-30] MEDS: HYDROmorphone HCL INJ (*CRX) 1 MG/ML SYR 0.5 MG IV PUSH ×4 (10:53→11:30)
[2024-04-30] MEDS: SIMETHICONE 80 MG TAB.CHEW PO ×2 (12:26→16:40)
[2024-04-30] MEDS: oxyCODONE HCL (*CRX) 5 MG TAB IR 10 MG PO ×2 (12:29→20:12)
[2024-04-30] MEDS: ESTRADIOL 7 DAY 0.05 MG PATCH TRANSDERM (13:10)
[2024-04-30] MEDS: DOCUSATE SODIUM 100 MG CAPSULE PO (16:40)
[2024-04-30] MEDS: KETOROLAC 30 MG/ML VIAL (*BKC) IV PUSH (19:07)
[2024-04-30] MEDS: SERTRALINE HCL 50 MG TABLET 150 MG PO (19:07)
[2024-05-01 00:05] VITALS: BP 98/57; PULSE 72; RESP 14; TEMP 36.7; O2SAT 100
[2024-05-01] MEDS: ACETAMINOPHEN 500 MG TABLET 1000 MG PO ×2 (01:07→07:46)
[2024-05-01] MEDS: KETOROLAC 30 MG/ML VIAL (*BKC) IV PUSH (01:07)
[2024-05-01 04:15] VITALS: BP 99/58; PULSE 67; PULSE 72; RESP 14; TEMP 36.8; O2SAT 100
[2024-05-01] MEDS: IBUPROFEN 600 MG TABLET PO (07:46)
[2024-05-01] MEDS: SIMETHICONE 80 MG TAB.CHEW PO (07:46)
[2024-05-01 08:00] VITALS: BP 109/63; PULSE 70; PULSE 72; RESP 14; RESP 16; TEMP 36.7; O2SAT 100
--- NOTE | 2024-05-01 08:26 | PM.GYNPNOP ---
STEAM FRAME OPERATOR - A/P Postoperative Procedures: Procedures Operation Date: 04/30/24 07:30 Actual Procedure Side Surgeon p Total Laparoscopic Hysterectomy with Bilateral Salpingo-oophorectomy Bilateral Adam Ornelas MD s Stent Placement for Abdominal Surgery Bilateral Gerald Burden MD Postoperative day: 1 Postoperative status: doing well and other (Tollerating Regular Diet) Postoperative plan: routine post-op care and discharge Time Spent With Patient Time: Total time spent is greater than 50% in coordination of care (as documented) at patient's floor/unit and/or counseling patient: Time with patient: 15 - 25 minutes STEAM FRAME OPERATOR- PN:Subj Post-Op Subjective Date/time seen: 05/01/24 08:26 Subjective: patient reports feeling better, pain is well controlled and patient is tolerating oral intake Exam Const: General: cooperative, healthy appearing, comfortable and no acute distress Resp: Auscultation: no crackles, no rales, no rhonchi and no wheezes Cardio: Rhythm: regular rhythm Heart sounds: no click and no murmurs GI: Inspection: non-distended Auscultation: normal bowel sounds Other: Incisions - CDI Extrem: General: normal to inspection, no pedal edema and no calf tenderness STEAM FRAME OPERATOR - PN: Obj Data Vital Signs Vital Signs: Vital Signs - 24 hr 04/30/24 09:43 04/30/24 09:58 04/30/24 10:13 Temperature 98.2 F Pulse Rate 87 105 H 101 H Respiratory Rate 19 19 14 Blood Pressure 108/59 L 124/86 112/56 L Pulse Oximetry 98 100 92 Oxygen Delivery Simple Face Mask Simple Face Mask Room Air Oxygen Flow Rate 8 8 04/30/24 10:28 04/30/24 10:43 04/30/24 10:58 Temperature Pulse Rate 98 95 95 Respiratory Rate 12 10 L 15 Blood Pressure 114/68 115/74 121/72 Pulse Oximetry 100 100 99 Oxygen Delivery Nasal Cannula Nasal Cannula Nasal Cannula Oxygen Flow Rate 2 2 2 04/30/24 11:13 04/30/24 11:28 04/30/24 11:43 Temperature Pulse Rate 94 81 79 Respiratory Rate 17 16 14 Blood Pressure 120/67 118/64 Pulse Oximetry 99 98 100 Oxygen Delivery Nasal Cannula Nasal Cannula Nasal Cannula Oxygen Flow Rate 2 2 2 04/30/24 12:00 04/30/24 16:35 04/30/24 20:00 Temperature 97.3 F L 97.4 F L 98.4 F Pulse Rate 80 76 78 Respiratory Rate 18 16 18 Blood Pressure 116/69 110/71 125/76 Pulse Oximetry 100 98 Oxygen Delivery Oxygen Flow Rate 04/30/24 20:00 05/01/24 00:05 05/01/24 04:15 Temperature 98.1 F 98.2 F Pulse Rate 76 72 67 Respiratory Rate 16 14 14 Blood Pressure 98/57 L 99/58 L Pulse Oximetry 100 100 100 Oxygen Delivery Room Air Oxygen Flow Rate 05/01/24 04:15 Temperature Pulse Rate 72 Respiratory Rate 14 Blood Pressure Pulse Oximetry 100 Oxygen Delivery Room Air Oxygen Flow Rate Intake/Output Intake/Output: Intake & Output 04/28/24 04/29/24 04/30/24 05/01/24 23:59 23:59 23:59 23:59 Intake Total 350 Output Total 1710 600 Balance -1360 -600 Meds/Results Medications: Active Medications Generic Name Dose Route Start Last Admin Trade Name Freq PRN Reason Stop Dose Admin Acetaminophen 1,000 mg 04/30/24 12:00 05/01/24 07:46 Acetaminophen 500 Mg Tablet PO 1,000 mg Q6HR LASHELL Administration Acetaminophen/Butalbital/Caffeine 1 tab 04/30/24 11:49 Acetaminophen/Butalbital/Caffeine 325-50-40 Mg Tablet (Fioricet) PO Q4H PRN Migraine Headache Docusate Sodium 100 mg 04/30/24 17:00 04/30/24 16:40 Docusate Sodium 100 Mg Capsule PO 100 mg BID LASHELL Administration Estradiol 0.05 mg 04/30/24 12:45 04/30/24 13:10 Estradiol 7 Day 0.05 Mg Patch TRANSDERM 0.05 mg Q7D LASHELL Administration Dextrose/Sodium Chloride 1,000 mls @ 125 mls/hr 04/30/24 11:49 04/30/24 21:00 Dextrose 5% Sodium Chloride 0.45% IV CONT Not Given .Q8H LASHELL Ibuprofen 600 mg 05/01/24 06:00 05/01/24 07:46 Ibuprofen 600 Mg Tablet PO 600 mg Q6HR LASHELL Administration Naloxone HCl 0.1 mg 04/30/24 11:49 Naloxone Hcl 0.4 Mg/Ml Vial IV PUSH Q2M PRN Respiratory rate less than 10 Ondansetron HCl 4 mg 04/30/24 11:49 Ondansetron Inj 4 Mg/2 Ml Vial IV PUSH Q6H PRN Nausea And Vomiting Oxycodone HCl 5 mg 04/30/24 11:49 Oxycodone Hcl (*Crx) 5 Mg Tab Ir PO Q4H PRN Pain Rated 4-6 Oxycodone HCl 10 mg 04/30/24 11:49 04/30/24 20:12 Oxycodone Hcl (*Crx) 5 Mg Tab Ir PO 10 mg Q6H PRN Administration Pain Rated 7-10 Sertraline HCl 150 mg 04/30/24 21:00 04/30/24 19:07 Sertraline Hcl 50 Mg Tablet PO 150 mg HS LASHELL Administration Simethicone 80 mg 04/30/24 12:00 05/01/24 07:46 Simethicone 80 Mg Tab.Chew PO 80 mg TIDWM LASHELL Administration Radiology Results: ITS Impressions Ureter Stent X-Ray 04/30/24 08:58 IMPRESSION: 1. Thoracic utilized during bilateral ureteral stent placement. See procedure note for further detail. Labs Labs: Laboratory Results - last 24 hr 04/30/24 06:25 POC Urine HCG, Qual Negative
== END 2024-05-01 09:41 | disposition home or self-care (01) ==
LOC: ANHSURGERY 05:51 → ANHOB2 12:06
PROVIDERS: Urology; PCP Internal Medicine Infectious Disease; Visit Provider Obstetrics & Gynecology
PROC: 0UT9FZZ Resection of Uterus, Via Natural or Artificial Opening With Percutaneous Endoscopic Assistance (ICD-10-PCS; CPT 58571; principal; 2024-04-30 07:30)
DX: D27.0 Benign neoplasm of right ovary (principal); E28.2 Polycystic ovarian syndrome; N80.329 Endometriosis of the posterior cul-de-sac, unspecified depth; G89.18 Other acute postprocedural pain; Z79.891 Long term (current) use of opiate analgesic; Z79.85 Long-term (current) use of injectable non-insulin antidiabetic drugs; Z97.5 Presence of (intrauterine) contraceptive device; Z80.41 Family history of malignant neoplasm of ovary
CPT/HCPCS: 52005; 58571; 58662; 88305; 88307; 99199; A9270; C1758; C1769; J0690; J1100; J1171; J1885; J2003; J2250; J2405; J2704; J3010; J7030; J7120; Q9968

== ENCOUNTER 2024-06-16 13:49 | Observation (INO) | payer OTHER, SELFPAY ==
--- NOTE | ~2024-06-16 | CT_ITS ---
EXAMINATION: CT brain wo con DATE: 06/16/2024 15:12 INDICATION: Headache. Right cheek numbness. TECHNIQUE: Computed tomography (CT) of the head was performed without intravenous contrast. The mA wa s adjusted according to patient size. Iterative reconstruction technique was employed. The dose-lengt h product was 529.67 mGy-cm. COMPARISON: None FINDINGS: There is no intracranial hemorrhage, acute infarction, or abnormal intracranial mass lesion . The ventricles are normal in size. The paranasal sinuses are clear. The mastoid air cells are fadi l. IMPRESSION: 1. Normal brain. Reviewed, dictated and finalized at location A. DER SET UP OPERATOR THREAD IMPRESSION: 1. Normal brain.
--- NOTE | ~2024-06-16 | MR_ITS ---
MRI of the brain Clinical History: Facial paresthesia Technique: Axial and sagittal T1-weighted images were acquired. These were followed by axial T2-weigh aung, diffusion weighted, gradient, and FLAIR images. Following intravenous administration of 12 cc Mu ltiHance gadolinium, T1-weighted fat-sat imaging was performed in the axial and coronal planes. Findings: There is no significant signal abnormality seen in the brain parenchyma. No acute infarct, intracranial hemorrhage, or mass lesion. Ventricles and subarachnoid spaces are unremarkable. Orbits are unremarkable. Paranasal sinuses and m astoids are clear. Major intracranial flow voids are intact. Sagittal midline structures are intact. No abnormal postcontrast enhancement identified. IMPRESSION: Normal exam. Reviewed, dictated and finalized at location . ER HAND IMPRESSION: Normal exam.
--- NOTE | ~2024-06-16 | CT_ITS ---
CT ANGIOGRAM NECK AND HEAD History: Right facial numbness. Technique: Serial spiral axial images through the head and neck were obtained during arterial phase I V injection of 100 cc of Omnipaque 350. 3-D postprocessing and MIP images were then reconstructed on the remote workstation. Dose reduction technique was used on this scan by utilizing automated exposur e control and iterative reconstruction technique. The dose-length product (DLP) was 800.24 mGy-cm. CTA neck findings: Bilateral vertebral arteries are patent. Bilateral common carotid, internal carot id, and external carotid arteries are patent. No large vessel occlusion or stenosis. No aneurysm. The proximal right internal carotid artery demonstrates 0% stenosis relative to the normal distal artery lumen diameter. The proximal left internal carotid artery demonstrates 0% stenosis relative to the n ormal distal artery lumen diameter. CTA head findings: Distal vertebral arteries, basilar artery, and posterior cerebral arteries are pat ent. Distal internal carotid arteries, middle cerebral arteries, and anterior cerebral arteries are p atent. No large vessel occlusion or stenosis. No aneurysm. Impression: No significant abnormality. Reviewed, dictated and finalized at location . [facility] Impression: No significant abnormality.
[2024-06-16 14:37] VITALS: BP 130/91; PULSE 98; RESP 18; TEMP 36.6; O2SAT 100
--- NOTE | 2024-06-16 14:45 | ED_ITS ---
HPI - Neuro Symptoms/Deficit General Chief Complaint: Neuro Symptoms/Deficit <Lori Huitron PA-C - Last Filed: 06/16/24 14:58> Stated Complaint: facial numbness <Lori Huitron PA-C - Last Filed: 06/16/24 14:58> Time Seen by Provider: 06/16/24 14:45 <Lori Huitron PA-C - Last Filed: 06/16/24 14:58> Focused HPI: Patient is a 33-year-old female who presents the ED with report of right-sided facial numbness. Patient reports around 1 week ago she began having pain in her right posterior neck. Pain began radiating under her right-sided jaw on into her ear. She then noticed today having numbness to her right facial cheek/right-sided tongue. She also reports that her smile is unequal and she is unable to stick her tongue out straight. She became concerned for CVA in prompted here. Patient does have history of frequent migraines reports having a migraine for the last several days. She took a oxycodone this morning without improvement. Headache is right-sided. States this feels typical of her normal migraines. She has had similar symptoms many years ago and states she believes she was diagnosed with Mary's palsy. Denies vision changes, slurred speech, confusion, dizziness, numbness or weakness of arm or leg. GENERAL: Mildly anxious-appearing, well-nourished, and in no acute distress. HEAD: Normocephalic, atraumatic. CHEST: Clear to auscultation. ?No respiratory distress. HEART: Regular rate and rhythm.? NEURO: ?Alert and oriented x3. No appreciable focal deficits. Slight delay in right eyelid closing. Sensation is grossly intact. No pronator drift. Strength 5 of 5 in upper and lower extremities bilaterally. Equal neonatal specialist strength bilaterally. Patient screened in triage and initial orders placed.? ?Additional care and disposition to be based upon?diagnostic testing and treatment. <Lori Huitron PA-C - Last Filed: 06/16/24 14:58> Source: patient <CHRISTOPHER Yuan Last Filed: 06/16/24 14:58> Mode of arrival: ambulatory <Lori Huitron PA-C - Last Filed: 06/16/24 14:58> Limitations: no limitations <Lori Huitron PA-C - Last Filed: 06/16/24 14:58> Related Data Home Medications: Home Medications ?Medication ?Instructions ?Recorded ?Confirmed ?Last Taken ?Type sertraline 50 mg tablet 150 mg PO HS 11/29/23 04/23/24 11/29/23 21:00 History ojecqsawtg-wtsnfqopliddb-fcopbtxs 1 tablet PO Q4H PRN Migraine 04/23/24 04/23/24 Unknown History 50 mg-325 mg-40 mg tablet Headache erenumab-aooe 140 mg/mL 140 mg subcut MONTHLY 04/23/24 04/23/24 Unknown History subcutaneous auto-injector (Aimovig Autoinjector) <Lori Huitron PA-C - Last Filed: 06/16/24 14:58> Allergies/Adverse Reactions: Allergies Allergy/AdvReac Type Severity Reaction Status Date / Time No Known Allergies Allergy Verified 06/16/24 13:50 <Lori Huitron PA-C - Last Filed: 06/16/24 14:58> Review of Systems 2 Review of Systems: CONSTITUTIONAL: Denies fever EYES: Denies visual changes GASTROINTESTINAL: Denies vomiting NEUROLOGIC: Reports headache, numbness, and weakness. <Amber Kamara PA-C - Last Filed: 06/17/24 00:44> All systems reviewed & are unremarkable except as noted in HPI and below < Amber Kamara PA-C - Last Filed: 06/17/24 00:44> [facility] Past Medical History Medical History: Medical History (Updated 06/17/24 @ 00:37 by Amber Kamara PA-C) History of migraine <Lori Huitron PA-C - Last Filed: 06/16/24 14:58> Family History Family History: Family History Grandparent Ovarian cancer High cholesterol Parkinson disease <Lori Huitron PA-C - Last Filed: 06/16/24 14:58> Social History Social History: Social History Smoking status: Never smoker Second hand tobacco smoke exposure: No Substance use: never Living arrangements: with family Spiritual care concerns: No <Lori Huitron PA-C - Last Filed: 06/16/24 14:58> Exam 2 Narrative: GENERAL: Well-appearing, well-nourished, and in no acute distress. HEAD: Normocephalic, atraumatic. EYES: PERRLA and EOMI. ENT: Nares clear, no rhinorrhea or epistaxis. Mucous membranes moist. Oropharynx without tonsillar hypertrophy exudate or other lesions. Bilateral TMs pearly oneil non-bulging NECK: Supple. No adenopathy or masses. CHEST: Clear to auscultation. No respiratory distress. No wheezes rales or rhonchi HEART: Regular rate and rhythm. No murmur heard. Normal peripheral pulses. EXTREMITIES: Normal range of motion. No edema. Strength equal in bilateral upper and lower extremities (5/5) SKIN: Warm, dry, no rash. NEURO: No focal deficits. Alert and oriented x3. CN II-XII grossly intact. Right eyelid closing is mildly delayed PSYCH: Normal mood and affect <Amber Kamara PA-C - Last Filed: 06/17/24 00:44> Course Course Emergency Course: patient updated on her workup and recommendation for admission <Amber Kamara PA-C - Last Filed: 06/17/24 00:44> Consultations Consultation #1: Spoke with Dr. Watson who will consult <Amber Kamara PA-C - Last Filed: 06/17/24 00:44> Date: 06/17/24 <CHRISTOPHER Shaffer Last Filed: 06/17/24 00:44> Consultation #2: Spoke with hospitalist about patient and workup who accepts admission < Amber Kamara PA-C - Last Filed: 06/17/24 00:44> Date: 06/17/24 <CHRISTOPHER Shaffer Last Filed: 06/17/24 00:44> Vital Signs Vital signs: Vital Signs Temperature 97.8 F 06/16/24 14:37 Pulse Rate 98 12/30/24 14:37 Respiratory Rate 18 06/16/24 14:37 Blood Pressure 130/91 H 06/16/24 14:37 Pulse Oximetry 100 06/16/24 14:37 Oxygen Delivery Room Air 06/16/24 14:37 Temperature 97.8 F 06/16/24 14:37 Pulse Rate 98 06/16/24 14:37 Respiratory Rate 18 06/16/24 14:37 Blood Pressure 130/91 H 06/16/24 14:37 Pulse Oximetry 100 06/16/24 14:37 Oxygen Delivery Room Air 06/16/24 14:37 <Lori Huitron PA-C - Last Filed: 06/16/24 14:58> Vital Signs Temperature 97.8 F 06/16/24 14:37 Pulse Rate 98 06/16/24 14:37 Respiratory Rate 18 06/16/24 14:37 Blood Pressure 130/91 H 06/16/24 14:37 Pulse Oximetry 100 06/16/24 14:37 Oxygen Delivery Room Air 06/16/24 14:37 Temperature 97.8 F 06/16/24 14:37 Pulse Rate 98 06/16/24 14:37 Respiratory Rate 18 06/16/24 14:37 Blood Pressure 130/91 H 06/16/24 14:37 Pulse Oximetry 100 06/16/24 14:37 Oxygen Delivery Room Air 06/16/24 14:37 <Amber Kamara PA-C - Last Filed: 06/17/24 00:44> MDM - Neuro Symptoms/Deficit MDM Narrative Medical decision making narrative: MSE by VASILIY in triage. <Lori Huitron PA-C - Last Filed: 06/16/24 14:58> MSE by VASILIY in triage. Patient presents to the ER for facial paresthesias. Right eyelid is slower to close, otherwise there are no appreciable neurologic deficits. Her vitals stable. CBC metabolic panel without concerning findings. CT brain is normal. Spoke with hospitalist about patient and workup who accepts admission for further evaluation with MRI. Spoke with Dr. Watson who will consult. <CHRISTOPHER Shaffer Last Filed: 06/17/24 00:44> Differential Diagnosis Differential diagnosis: Likely cerebrovascular accident, multiple sclerosis, transient cerebral ischemia and other (Mary's palsy) <Amber Kamara PA-C - Last Filed: 06/17/24 00:44> Lab Data Attestation: I reviewed the patient's lab results. <Amber Kamara PA-C - Last Filed: 06/17/24 00:44> Result diagrams: 06/16/24 15:30 06/16/24 15:30 <Lori Huitron PA-C - Last Filed: 06/16/24 14:58> Labs: Lab Results 06/16/24 Range/Units 15:30 WBC 7.9 (4.5-10.0) K/mm3 RBC 4.69 (4.2-5.4) M/mm3 Hgb 14.1 (12.0-15.0) g/dL Hct 41.9 (37.0-47.0) % MCV 89.3 (80-100) fl MCH 30.1 (26-34) pg MCHC 33.7 (32-36) g/dl RDW 12.4 (11.5-14.5) % Plt Count 271 D (150-375) k/mm3 MPV 9.6 (7.4-10.4) fl Immature Gran % (Auto) 0.4 (0-0.5) % Neut % (Auto) 60.2 (45.5-73.1) % Lymph % (Auto) 30.9 (18.3-44.2) % Stokes % (Auto) 5.2 (2.6-8.5) % Eos % (Auto) 2.5 (0-4.4) % Baso % (Auto) 0.8 (0.2-1.2) % Lymph # (Auto) 2.45 (0.9-3.2) K/mm3 Stokes # (Auto) 0.4 (0.1-0.6) K/mm3 Eos # (Auto) 0.2 (0-0.3) K/mm3 Baso # (Auto) 0.1 (0.0-0.1) K/mm3 Abs Immat Gran (auto) 0.03 (0.00-0.031) K/mm3 Absolute Neuts (auto) 4.8 (1.3-6.7) K/mm3 Absolute Nucleated RBC 0.000 (0.0-0.012) K/mm3 Nucleated RBC % 0.0 (0.0-0.2) % Sodium 138 (137-145) mmol/L Potassium 3.9 (3.4-5.0) mmol/L Chloride 105 (98-107) mmol/L Carbon Dioxide 28 (22-30) mmol/L Anion Gap 5 (4-12) mmol/L BUN 12 D (7-17) mg/dL Creatinine 0.80 (0.7-1.0) mg/dL Estim Creat Clear Calc 62 ml/min Estimated GFR > 60 (59 - ) Glucose 93 (65-110) mg/dL Calcium 9.5 (8.4-10.2) mg/dL Total Bilirubin 0.5 (0.2-1.3) mg/dL AST 25 (14-36) U/L ALT 24 (6-35) U/L Alkaline Phosphatase 97 (38-126) U/L Total Protein 8.0 (6.3-8.2) g/dL Albumin 4.6 (3.5-5.1) g/dL <Lori Huitron PA-C - Last Filed: 06/16/24 14:58> Lab Results 06/16/24 Range/Units 15:30 WBC 7.9 (4.5-10.0) K/mm3 RBC 4.69 (4.2-5.4) M/mm3 Hgb 14.1 (12.0-15.0) g/dL Hct 41.9 (37.0-47.0) % MCV 89.3 (80-100) fl MCH 30.1 (26-34) pg MCHC 33.7 (32-36) g/dl RDW 12.4 (11.5-14.5) % Plt Count 271 D (150-375) k/mm3 MPV 9.6 (7.4-10.4) fl Immature Gran % (Auto) 0.4 (0-0.5) % Neut % (Auto) 60.2 (45.5-73.1) % Lymph % (Auto) 30.9 (18.3-44.2) % Stokes % (Auto) 5.2 (2.6-8.5) % Eos % (Auto) 2.5 (0-4.4) % Baso % (Auto) 0.8 (0.2-1.2) % Lymph # (Auto) 2.45 (0.9-3.2) K/mm3 Stokes # (Auto) 0.4 (0.1-0.6) K/mm3 Eos # (Auto) 0.2 (0-0.3) K/mm3 Baso # (Auto) 0.1 (0.0-0.1) K/mm3 Abs Immat Gran (auto) 0.03 (0.00-0.031) K/mm3 Absolute Neuts (auto) 4.8 (1.3-6.7) K/mm3 Absolute Nucleated RBC 0.000 (0.0-0.012) K/mm3 Nucleated RBC % 0.0 (0.0-0.2) % Sodium 138 (137-145) mmol/L Potassium 3.9 (3.4-5.0) mmol/L Chloride 105 (98-107) mmol/L Carbon Dioxide 28 (22-30) mmol/L Anion Gap 5 (4-12) mmol/L BUN 12 D (7-17) mg/dL Creatinine 0.80 (0.7-1.0) mg/dL Estim Creat Clear Calc 62 ml/min Estimated GFR > 60 (59 - ) Glucose 93 (65-110) mg/dL Calcium 9.5 (8.4-10.2) mg/dL Total Bilirubin 0.5 (0.2-1.3) mg/dL AST 25 (14-36) U/L ALT 24 (6-35) U/L Alkaline Phosphatase 97 (38-126) U/L Total Protein 8.0 (6.3-8.2) g/dL Albumin 4.6 (3.5-5.1) g/dL <Amber Kamara PA-C - Last Filed: 06/17/24 00:44> Imaging Data Radiologist's impression: ITS Impressions Head CT 06/16/24 15:13 IMPRESSION: 1. Normal brain. <CHRISTOPHER Shaffer Last Filed: 06/17/24 00:44> Critical Care Time Critical Care Time Critical Care Time: No <Amber Kamara PA-C - Last Filed: 06/17/24 00:44> Discharge Plan Discharge Clinical Impression: Facial paresthesia <Lori Huitron PA-C - Last Filed: 06/16/24 14:58> Patient Disposition: Still a Patient <Lori Huitron PA-C - Last Filed: 06/16/24 14:58> Condition: Stable <Lori Huitron PA-C - Last Filed: 06/16/24 14:58> Patient Language: Spanish <Lori Huitron PA-C - Last Filed: 06/16/24 14:58> Prescriptions: No Action sertraline 50 mg tablet 150 mg PO HS mtaaxxdyru-mxffumplbefiu-ympe 50-325-40 mg tablet 1 tablet PO Q4H PRN (Reason: Migraine Headache) Aimovig Autoinjector 140 mg/mL auto-injector 140 mg SUBCUT MONTHLY oxycodone-acetaminophen 5-325 mg tablet 1 tablet PO Q4H PRN (Reason: pain) Qty: 25 0RF <Lori Huitron PA-C - Last Filed: 06/16/24 14:58> Follow-up/Referrals: Deandre,Marko Preciado MD [Primary Care Provider] - <Lori Huitron PA-C - Last Filed: 06/16/24 14:58>
[2024-06-16] MEDS: ACETAMINOPHEN 500 MG TABLET 1000 MG PO (15:25)
[2024-06-16] MEDS: diphenhydrAMINE HCl INJ 50 MG/ML VIAL 25 MG IV PUSH (15:25)
[2024-06-16] MEDS: METOCLOPRAMIDE HCL INJ 10 MG/2 ML VIAL IV PUSH (15:25)
[2024-06-16 15:36] LABS: Basophils Absolute Auto 0.1 K/mm3 (0.0-0.1); Basophils Percent Auto 0.8 % (0.2-1.2); Eosinophils Absolute Auto 0.2 K/mm3 (0-0.3); Eosinophils Percent Auto 2.5 % (0-4.4); Hematocrit 41.9 % (37.0-47.0); Hemoglobin 14.1 g/dL (12.0-15.0); Immature Granulocyte Absolute 0.03 K/mm3 (0.00-0.031); Immature Granulocyte Percent A 0.4 % (0-0.5); Lymphocytes Absolute Auto 2.45 K/mm3 (0.9-3.2); Lymphocytes Percent Auto 30.9 % (18.3-44.2); Mean Corpuscular HGB Conc 33.7 g/dl (32-36); Mean Corpuscular Hemoglobin 30.1 pg (26-34); Mean Corpuscular Volume 89.3 fl (80-100); Mean Platelet Volume 9.6 fl (7.4-10.4); Monocytes Absolute Auto 0.4 K/mm3 (0.1-0.6); Monocytes Percent Auto 5.2 % (2.6-8.5); Neutrophils Absolute Auto 4.8 K/mm3 (1.3-6.7); Neutrophils Percent Auto 60.2 % (45.5-73.1); Platelet Count Result 271 k/mm3 (150-375); Red Blood Count 4.69 M/mm3 (4.2-5.4); Red Cell Distribution Width 12.4 % (11.5-14.5); White Blood Count 7.9 K/mm3 (4.5-10.0)
[2024-06-16 15:49] LABS: Alanine Aminotransferase 24 U/L (6-35); Albumin Level 4.6 g/dL (3.5-5.1); Alkaline Phosphatase 97 U/L (38-126); Anion Gap 5 mmol/L (4-12); Aspartate Amino Transferase 25 U/L (14-36); Bilirubin,Total 0.5 mg/dL (0.2-1.3); Blood Urea Nitrogen 12 mg/dL (7-17); Calcium 9.5 mg/dL (8.4-10.2); Carbon Dioxide 28 mmol/L (22-30); Chloride 105 mmol/L (98-107); Estimated CRCL calculation 62 ml/min; Estimated Glomerular Filt Rate > 60; Glucose 93 mg/dL (65-110); Potassium 3.9 mmol/L (3.4-5.0); Sodium 138 mmol/L (137-145)
[2024-06-16 23:55] VITALS: O2SAT 100
[2024-06-16 23:56] VITALS: BP 134/80; PULSE 85; RESP 15; O2SAT 100
[2024-06-17] VITALS (36 sets, daily range): BP systolic 108–154; BP diastolic 61–97; PULSE 73–104; RESP 13–24; TEMP 36.5–36.6; O2SAT 80–100; BMI 22.4
[2024-06-17] MEDS: SODIUM CHLORIDE 0.9% IV 1,000 ML 999 ML IV CONT (00:46)
--- NOTE | 2024-06-17 01:50 | PM.IMHP ---
H&P: HPI History of Present Illness Date/Time: 06/17/24 01:50 Chief Complaint: Swelling right side of neck/jaw, numbness in face. Narrative: This is a pleasant 33-year-old female with history of migraine headaches and polycystic ovarian syndrome status post total hysterectomy and bilateral salpingo-oophorectomy on 04/30/2024 who presented to the emergency department via private vehicle for evaluation of swelling of the right side of the neck/jaw and numbness of the right side of the face. The patient provides the following history. She has almost daily headaches which usually settle in the right temporal region. Over the last week or so she developed pain in the posterior right neck, ear, and right jaw. She has been taking Fioricet and oxycodone which she had left over from her recent hysterectomy without much benefit. Today she noticed numbness and tingling of the right side of the lower face, right part of the lower lip, and right side of the tongue. noticed that the right side of her face seemed to be a tad droopy. He then asked her to stick her tongue out and she was able to do so without issue however when she attempted to curl her tongue, it deviated to the right. Due to concerns for possible stroke she came in for evaluation. On exam her right ear with slightly red and swollen and she was noted to have a fluctuant marble-sized area over the antitragus. That apparently popped up over the past 1 week and has become increasingly painful and a bit more swollen. She denies fever, chills, sweats, sinus congestion, sore throat, vision changes, difficulty speaking and swallowing (she did bite her tongue accidentally due to the paresthesias), focal weakness, gait disturbances, injury, fall, recent ear piercings, and bites. In the ED: She was afebrile on arrival with stable vital signs. CMP and CBC were unremarkable. Head CT was without acute findings. ED provider attempted to drain the fluctuant area on the ear but only a small amount of serosanguineous fluid was obtained. She received cefazolin 1 g. Due to concerns for possible stroke or other neurologic condition, we were asked to admit the patient for further workup. Review of Systems Review of Systems: 12 systems were reviewed and are negative except for as per HPI. PENDING SALE TO [facility] Past Medical History Medical History (Updated 06/17/24 @ 03:41 by Shanna Aguilera PA-C) Polycystic ovarian syndrome Migraine headache Surgical History Surgical History (Updated 06/17/24 @ 03:41 by Shanna Aguilera PA-C) History of total abdominal hysterectomy and bilateral salpingo-oophorectomy (04/2024) Family History Family History Grandparent Ovarian cancer High cholesterol Parkinson disease Social History Social History (Updated 06/17/24 @ 03:48 by Shanna Aguilera PA-C) Social History: Surrogate medical decision maker: Dayday Zaragoza, spouse. Code status: Full code. Smoking status: Never smoker Second hand tobacco smoke exposure: No Substance use: never Additional living arrangements comments: The patient lives with her spouse and their 4 children in [place]. 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 Spiritual care concerns: No Meds Home Medications and Allergies Home Medications ?Medication ?Instructions ?Recorded ?Confirmed ?Type sertraline 50 mg tablet 150 mg PO HS 11/29/23 04/23/24 History filstgkrqu-hwiefnknmcqgi-suraeztb 1 tablet PO Q4H PRN Migraine 04/23/24 04/23/24 History 50 mg-325 mg-40 mg tablet Headache erenumab-aooe 140 mg/mL 140 mg subcut MONTHLY 04/23/24 04/23/24 History subcutaneous auto-injector (Aimovig Autoinjector) oxycodone-acetaminophen 5 mg-325 1 tablet PO Q4H PRN pain #25 tabs 05/01/24 Rx mg tablet Allergies Allergy/AdvReac Type Severity Reaction Status Date / Time No Known Allergies Allergy Verified 06/16/24 13:50 Vital Signs Vital Signs - 24 hr 06/16/24 14:37 Temperature 97.8 F Pulse Rate 98 Respiratory Rate 18 Blood Pressure 130/91 H Pulse Oximetry 100 Oxygen Delivery Room Air Exam Narrative: General: Well-developed, nontoxic-appearing female sitting up in bed in no distress. Weight: 59 kg. BMI: 25.4. HEENT: Normocephalic, atraumatic. There is a marble-sized fluctuant area over the right anti tragus with surrounding erythema, induration, and a bit of warmth over the helix and antihelix. The area is quite tender to palpation. She also has tenderness in the right pre-auricular region and down to the angle of the right mandible. PERRL, EOMI. Sclera anicteric. Oral mucosa moist. Oropharynx clear. Neck: Supple. Right sternocleidomastoid feels tense near the occiput. There is some erythema in the area due to patient massaging. Respiratory: Lungs are clear to auscultation bilaterally. Cardiovascular: Regular rate and rhythm with S1-S2. Gastrointestinal: Abdomen is soft, nontender, and nondistended with positive bowel sounds. Skin: Warm and dry. No rash or lesions on limited exam. Extremities: No cyanosis, clubbing, or edema. Radial and pedal pulses intact. Neurological: Alert and oriented. Cranial nerves 2-12 are grossly intact. Speech is clear. Perhaps very mild right is mild facial droop. Tongue protrudes midline however it does deviate to the right when she attempts to protrude her tongue while curling the tongue. Subjective decrease in sensation over the right cheek and right bottom lower lip. No pronator drift. Hand start up specialist and foot pushes equal bilaterally. Number [id number], rapid alternating movements, and heel to briscoe. Psychiatric: Pleasant and cooperative with normal mood and affect. Judgment and insight intact. H&P: Results Labs Labs: Short CBC 06/16/24 Range/Units 15:30 WBC 7.9 (4.5-10.0) K/mm3 Hgb 14.1 (12.0-15.0) g/dL Hct 41.9 (37.0-47.0) % Plt Count 271 D (150-375) k/mm3 BMP 06/16/24 15:30 Sodium 138 Potassium 3.9 Chloride 105 Carbon Dioxide 28 BUN 12 D Creatinine 0.80 Glucose 93 Calcium 9.5 Liver Function 06/16/24 Range/Units 15:30 Total Bilirubin 0.5 (0.2-1.3) mg/dL AST 25 (14-36) U/L ALT 24 (6-35) U/L Alkaline Phosphatase 97 (38-126) U/L Albumin 4.6 (3.5-5.1) g/dL Impressions Head CT 06/16/24 15:13 IMPRESSION: 1. Normal brain. Assessment and Plan Assessment and plan (1) Facial paresthesia: Code(s): R20.2 - Paresthesia of skin Status: Acute (2) Tongue deviation: Code(s): K14.8 - Other diseases of tongue Status: Acute (3) Chondritis of right external ear: Code(s): H61.031 - Chondritis of right external ear Status: Acute Plan The patient presented to the emergency department for evaluation of paresthesias of the right side of her face and deviation of the tongue as detailed in HPI. Labs, imaging, EKG, and all reports were personally reviewed. On exam she has evidence of chondritis of the right ear with associated swelling in the preauricular region. The facial nerve exits near the affected area and the inflammation may very well be affecting the nerves and causing the paresthesias and tongue deviation. Nonetheless she was recently started on hormones and is concerned for stroke and a brain MRI has been ordered to rule out that and other etiologies. Atypical migraine is also a consideration though seems less likely by her exam findings. Analgesics are available as needed for pain associated with what appears to be chondritis of the right ear. Continue cefazolin. Patient is encouraged to follow-up with ENT as an outpatient. Vital signs were reviewed and they are stable. Her home medications will be reviewed and resumed as appropriate. Findings and treatment plan were discussed with the patient and her . Questions were solicited and answered to satisfaction. The patient's medical management will be taken over by the hospitalist team in a.m. Quality VTE Prophylaxis VTE prophylaxis: mechanical ordered The patient has been admitted under observation status. Hospitalist MIPS Advance Care Plan I have confirmed that the patient's Advanced Care Plan is present, code status is documented, or surrogate decision maker is listed in patient medical record.: Yes Medication Reconciliation I have utilized all available resources to obtain, update and review the patients current medications (includes all prescriptions, OTC, herbals, cannabis, and nutritional supplements).: Yes
[2024-06-17] MEDS: ceFAZolin 1 GM/NS 50 ML 1 GM/50 ML BAG IVPB ×3 (02:23→17:23)
--- NOTE | 2024-06-17 06:43 | ADMGEN ---
This patient, Amber Zaragoza, was admitted to Medical Room 244-. Patient/family oriented to hospital policies and general routines including ID bracelet, bed and alarms, visiting hours, pain management, procedures, bathroom and other care routines, personal items, smoking policy, room service/diet, and visiting hours. Information on how to activate the Rapid Response Team has been discussed. Patient/Family are encouraged to report perceived risks to care and to ask questions if they do not understand what they are told or what they should do.
--- NOTE | 2024-06-17 08:55 | P.PNIM_ITS ---
Progress Note: A&P Assessment and Plan (1) Facial paresthesia: Code(s): R20.2 - Paresthesia of skin Status: Acute (2) Tongue deviation: Code(s): K14.8 - Other diseases of tongue Status: Acute (3) Chondritis of right external ear: Code(s): H61.031 - Chondritis of right external ear Status: Acute Plan The patient presented to the emergency department for evaluation of paresthesias of the right side of her face and deviation of the tongue as detailed in HPI. Labs, imaging, EKG, and all reports were reviewed. -on exam- evidence of chondritis of the right ear with associated swelling in the preauricular region. The facial nerve exits near the affected area and the inflammation may very well be affecting the nerves and causing the paresthesias and tongue deviation. She was recently started on hormones and is concerned for stroke and a brain MRI has been ordered to rule out that and other etiologies- pending completion Analgesics are available as needed for pain Continue cefazolin IV Patient is encouraged to follow-up with ENT as an outpatient. neurology consulted- appreciate recommendations Time Spent With Patient Time with patient: 25 - 35 minutes Subjective Date/time seen: 06/17/24 08:55 Interval history: Swelling right side of neck/jaw, numbness in face. Narrative retrieved from H/P: This is a pleasant 33-year-old female with history of migraine headaches and polycystic ovarian syndrome status post total hysterectomy and bilateral salpingo-oophorectomy on 04/30/2024 who presented to the emergency department via private vehicle for evaluation of swelling of the right side of the neck/jaw and numbness of the right side of the face. The patient provides the following history. She has almost daily headaches which usually settle in the right temporal region. Over the last week or so she developed pain in the posterior right neck, ear, and right jaw. She has been taking Fioricet and oxycodone which she had left over from her recent hysterectomy without much benefit. Today she noticed numbness and tingling of the right side of the lower face, right part of the lower lip, and right side of the tongue. noticed that the right side of her face seemed to be a tad droopy. He then asked her to stick her tongue out and she was able to do so without issue however when she attempted to curl her tongue, it deviated to the right. Due to concerns for possible stroke she came in for evaluation. On exam her right ear with slightly red and swollen and she was noted to have a fluctuant marble-sized area over the antitragus. That apparently popped up over the past 1 week and has become increasingly painful and a bit more swollen. She denies fever, chills, sweats, sinus congestion, sore throat, vision changes, difficulty speaking and swallowing (she did bite her tongue accidentally due to the paresthesias), focal weakness, gait disturbances, injury, fall, recent ear piercings, and bites. In the ED: She was afebrile on arrival with stable vital signs. CMP and CBC were unremarkable. Head CT was without acute findings. ED provider attempted to drain the fluctuant area on the ear but only a small amount of serosanguineous fluid was obtained. She received cefazolin 1 g. Due to concerns for possible stroke or other neurologic condition, we were asked to admit the patient for further workup. pt is seen and examined. MRI brain scheduled for today. neurology is consulted. Review of Systems Review of Systems: 12 systems were reviewed and are negativ e except for as per HPI. Exam Narrative: General: Well-developed, nontoxic-appearing female. Weight: 59 kg. BMI: 25.4. HEENT: Normocephalic, atraumatic. There is a marble-sized fluctuant area over the right anti tragus with surrounding erythema, induration, and a bit of warmth over the helix and antihelix. The area is quite tender to palpation. She also has tenderness in the right pre-auricular region and down to the angle of the right mandible. PERRL, EOMI. Sclera anicteric. Oral mucosa moist. Oropharynx clear. Neck: Supple. Right sternocleidomastoid feels tense near the occiput. There is some erythema in the area due to patient massaging. Respiratory: Lungs are clear to auscultation bilaterally. Cardiovascular: Regular rate and rhythm with S1-S2. Gastrointestinal: Abdomen is soft, nontender, and nondistended with positive bowel sounds. Skin: Warm and dry. No rash or lesions on limited exam. Extremities: No cyanosis, clubbing, or edema. Radial and pedal pulses intact. Neurological: Alert and oriented. Cranial nerves 2-12 are grossly intact. Speech is clear. Perhaps very mild right is mild facial droop. Tongue protrudes midline however it does deviate to the right when she attempts to protrude her tongue while curling the tongue. Subjective decrease in sensation over the right cheek and right bottom lower lip. No pronator drift. 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 Number [id number], rapid alternating movements, and heel to briscoe. Psychiatric: Pleasant and cooperative with normal mood and affect. Judgment and insight intact. Const: General: comfortable Objective Data Vital Signs Vital Signs: Vital Signs - 24 hr 06/16/24 14:37 06/16/24 23:55 06/16/24 23:56 Temperature 97.8 F Pulse Rate 98 85 Respiratory Rate 18 15 Blood Pressure 130/91 H 134/80 Pulse Oximetry 100 100 100 Oxygen Delivery Room Air 06/17/24 00:15 06/17/24 00:16 06/17/24 01:13 Temperature Pulse Rate 104 H 83 97 Respiratory Rate 22 H 15 24 H Blood Pressure 133/82 Pulse Oximetry 98 100 100 Oxygen Delivery 06/17/24 01:15 06/17/24 01:16 06/17/24 01:30 Temperature Pulse Rate 92 92 77 Respiratory Rate 22 H 15 17 Blood Pressure 154/97 H Pulse Oximetry 100 100 100 Oxygen Delivery 06/17/24 01:32 06/17/24 01:45 06/17/24 01:46 Temperature Pulse Rate 77 88 85 Respiratory Rate 16 15 19 Blood Pressure 128/79 140/92 H Pulse Oximetry 100 100 100 Oxygen Delivery 06/17/24 02:09 06/17/24 02:15 06/17/24 02:16 Temperature Pulse Rate 78 86 83 Respiratory Rate 19 15 15 Blood Pressure 118/77 Pulse Oximetry 100 99 100 Oxygen Delivery 06/17/24 02:56 06/17/24 02:57 06/17/24 03:00 Temperature Pulse Rate 88 77 82 Respiratory Rate 15 16 14 Blood Pressure 117/68 Pulse Oximetry 96 100 100 Oxygen Delivery 06/17/24 03:01 06/17/24 03:15 06/17/24 03:16 Temperature Pulse Rate 82 76 77 Respiratory Rate 13 14 16 Blood Pressure 115/72 115/68 Pulse Oximetry 100 100 100 Oxygen Delivery 06/17/24 03:30 06/17/24 03:31 06/17/24 03:47 Temperature Pulse Rate 77 77 92 Respiratory Rate 15 15 18 Blood Pressure 109/62 Pulse Oximetry 100 100 Oxygen Delivery 06/17/24 04:02 06/17/24 04:17 06/17/24 04:34 Temperature Pulse Rate 73 75 78 Respiratory Rate 15 14 16 Blood Pressure Pulse Oximetry Oxygen Delivery 06/17/24 04:47 06/17/24 05:01 06/17/24 05:39 Temperature Pulse Rate 80 74 77 Respiratory Rate 17 16 14 Blood Pressure Pulse Oximetry 100 99 Oxygen Delivery 06/17/24 05:45 06/17/24 06:43 06/17/24 08:00 Temperature 97.9 F Pulse Rate 85 100 77 Respiratory Rate 15 18 Blood Pressure 119/67 Pulse Oximetry 99 80 L Oxygen Delivery Intake/Output Intake/Output: Intake & Output 06/14/24 06/15/24 06/16/24 06/17/24 23:59 23:59 23:59 23:59 Intake Total 1050 Balance 1050 Meds/Results Medications: Active Medications Generic Name Dose Route Start Last Admin Trade Name Freq PRN Reason Stop Dose Admin Acetaminophen 650 mg 06/17/24 03:54 Acetaminophen 325 Mg Tablet PO Q6H PRN Mild Pain (1-3) or Fever Hydrocodone Bitart/Acetaminophen 1 tab 06/17/24 03:54 Hydrocodone/Acetaminophen (*Crx) 5-325 Mg Tablet PO Q6H PRN Pain Rated 4-6 Cefazolin Sodium 1 gm in 50 mls @ 100 mls/hr 06/17/24 10:00 Ancef 1 Gm/Ns 50 Ml IVPB Q8H [facility] Radiology Results: ITS Impressions Head CT 06/16/24 15:13 IMPRESSION: 1. Normal brain. Head/Neck CTA 06/17/24 06:25 Impression: No significant abnormality. Labs Labs: Laboratory Results - last 24 hr 06/16/24 15:30 WBC 7.9 RBC 4.69 Hgb 14.1 Hct 41.9 MCV 89.3 MCH 30.1 MCHC 33.7 RDW 12.4 Plt Count 271 D MPV 9.6 Immature Gran % (Auto) 0.4 Neut % (Auto) 60.2 Lymph % (Auto) 30.9 [place] % (Auto) 5.2 Eos % (Auto) 2.5 Baso % (Auto) 0.8 Lymph # (Auto) 2.45 [place] # (Auto) 0.4 Eos # (Auto) 0.2 Baso # (Auto) 0.1 Abs Immat Gran (auto) 0.03 Absolute Neuts (auto) 4.8 Absolute Nucleated RBC 0.000 Nucleated RBC % 0.0 Sodium 138 Potassium 3.9 Chloride 105 Carbon Dioxide 28 Anion Gap 5 BUN 12 D Creatinine 0.80 Estim Creat Clear Calc 62 Estimated GFR > 60 Glucose 93 Calcium 9.5 Total Bilirubin 0.5 AST 25 ALT 24 Alkaline Phosphatase 97 Total Protein 8.0 Albumin 4.6 Quality VTE Prophylaxis VTE prophylaxis: mechanical ordered
--- NOTE | 2024-06-17 11:54 | P.CONNEU_ITS ---
Assessment and Plan Assessment and plan (1) Facial paresthesia: Code(s): R20.2 - Paresthesia of skin Status: Acute Plan Rule out the possibility of stroke because of her concerns and as she was recently started on hormones and she has focal symptomatology particularly concerning about the brainstem. Consult date: 06/17/24 HPI: Amber Zaragoza is a 33 year old female Admitted to the hospital through the emergency room with the complaints of right-sided facial numbness in addition to the history of pain in the right posterior neck starting about 1 week ago and radiating down to her right-sided jaw and into her ear. Subsequently she developed numbness to her right side of the face including the right side of the tongue as well and she noted that her smile was asymmetrical. 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 Her medications included butalbital Tylenol 1 tab q.4 hours p.r.n. and Aimovig 140mg subcu monthly injection. She is a nonsmoker, non substance user, and her initial exam in the emergency room was normal including the normal vital signs, normal CBC, normal BMP, and normal routine lab, negative CT scan of the head, at present she is receiving the same medication in addition to antibiotics for the fluctuant area on the ER with small amount of drainage. Her initial CT scan was normal, head and neck CTA was negative, and she is waiting for the MRI of the brain Review of Systems 2 Review of Systems: All systems reviewed & are unremarkable except as noted in HPI and below PMFSH Past Medical History Medical History Polycystic ovarian syndrome Migraine headache Surgical History Surgical History History of total abdominal hysterectomy and bilateral salpingo-oophorectomy (04/2024) Family History Family History Grandparent Ovarian cancer High cholesterol Parkinson disease Social History Social History Social History: Surrogate medical decision maker: Dayday Zaragoza, spouse. Code status: Full code. Smoking status: Never smoker Second hand tobacco smoke exposure: No Substance use: never Do You Feel Safe in your Home?: Yes Lack of Transportation: No Lack of Food: Never True Current Housing: I Do Not Have Housing Concerned About Future Housing: No Difficulty Paying Gas/Electric Bills: No Difficulty Paying for Meds: No Currently Unemployed: No Education: Associate Degree Difficulty w/ Childcare or Family Care: No Additional living arrangements comments: The patient lives with her spouse and their 4 children in [place]. 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 Spiritual care concerns: No Meds Home Medications and Allergies Home Medications ?Medication ?Instructions ?Recorded ?Confirmed ?Type sertraline 50 mg tablet 150 mg PO HS 11/29/23 06/17/24 History [id number]-jbhvuxaawkkra-dadtpipm 1 tablet PO Q4H PRN Migraine 04/23/24 06/17/24 History 50 mg-325 mg-40 mg tablet Headache erenumab-aooe 140 mg/mL 140 mg subcut MONTHLY 04/23/24 06/17/24 History subcutaneous auto-injector (Aimovig Autoinjector) oxycodone-acetaminophen 5 mg-325 1 tablet PO Q4H PRN pain #25 tabs 05/01/24 06/17/24 Rx mg tablet estradiol 2 mg tablet mg PO DAILY Hormones 06/17/24 History Allergies Allergy/AdvReac Type Severity Reaction Status Date / Time No Known Allergies Allergy Verified 06/16/24 13:50 Vital Signs Vital Signs - 24 hr 06/16/24 14:37 06/16/24 23:55 06/16/24 23:56 Temperature 36.6 C Pulse Rate 98 85 Respiratory Rate 18 15 Blood Pressure 130/91 H 134/80 Pulse Oximetry 100 100 100 Oxygen Delivery Room Air 06/17/24 00:15 06/17/24 00:16 06/17/24 01:13 Temperature Pulse Rate 104 H 83 97 Respiratory Rate 22 H 15 24 H Blood Pressure 133/82 Pulse Oximetry 98 100 100 Oxygen Delivery 06/17/24 01:15 06/17/24 01:16 06/17/24 01:30 Temperature Pulse Rate 92 92 77 Respiratory Rate 22 H 15 17 Blood Pressure 154/97 H Pulse Oximetry 100 100 100 Oxygen Delivery 06/17/24 01:32 06/17/24 01:45 06/17/24 01:46 Temperature Pulse Rate 77 88 85 Respiratory Rate 16 15 19 Blood Pressure 128/79 140/92 H Pulse Oximetry 100 100 100 Oxygen Delivery 06/17/24 02:09 06/17/24 02:15 06/17/24 02:16 Temperature Pulse Rate 78 86 83 Respiratory Rate 19 15 15 Blood Pressure 118/77 Pulse Oximetry 100 99 100 Oxygen Delivery 06/17/24 02:56 06/17/24 02:57 06/17/24 03:00 Temperature Pulse Rate 88 77 82 Respiratory Rate 15 16 14 Blood Pressure 117/68 Pulse Oximetry 96 100 100 Oxygen Delivery 06/17/24 03:01 06/17/24 03:15 06/17/24 03:16 Temperature Pulse Rate 82 76 77 Respiratory Rate 13 14 16 Blood Pressure 115/72 115/68 Pulse Oximetry 100 100 100 Oxygen Delivery 06/17/24 03:30 06/17/24 03:31 06/17/24 03:47 Temperature Pulse Rate 77 77 92 Respiratory Rate 15 15 18 Blood Pressure 109/62 Pulse Oximetry 100 100 Oxygen Delivery 06/17/24 04:02 06/17/24 04:17 06/17/24 04:34 Temperature Pulse Rate 73 75 78 Respiratory Rate 15 14 16 Blood Pressure Pulse Oximetry Oxygen Delivery 06/17/24 04:47 06/17/24 05:01 06/17/24 05:39 Temperature Pulse Rate 80 74 77 Respiratory Rate 17 16 14 Blood Pressure Pulse Oximetry 100 99 Oxygen Delivery 06/17/24 05:45 06/17/24 06:43 06/17/24 07:00 Temperature 36.6 C Pulse Rate 85 100 80 Respiratory Rate 15 18 Blood Pressure 119/67 Pulse Oximetry 99 80 L 100 Oxygen Delivery 06/17/24 08:00 Temperature Pulse Rate 77 Respiratory Rate Blood Pressure Pulse Oximetry Oxygen Delivery Exam 2 Narrative: revealed her to be awake alert cooperative in no obvious acute distress, head normocephalic with no bruit, his small marble sized fluctuant area of the right and the track this with erythema, neck supple, heart regular with no murmur, lungs clear to auscultation, abdomen is soft nontender with normal bowel sounds, neurologically awake alert oriented x3 his speech not dysphasic not dysarthric not dysphonic pupils round regular feels the vision full extraocular movements full face mildly asymmetrical with tongue protrusion mildly off the midline and slight decreased sensation on the right side motor examination revealed her to have no focal motor deficit with symmetrical reflexes and downgoing plantar responses. Results Labs 06/16/24 15:30 06/16/24 15:30 Labs: Short CBC 06/16/24 Range/Units 15:30 WBC 7.9 (4.5-10.0) K/mm3 Hgb 14.1 (12.0-15.0) g/dL Hct 41.9 (37.0-47.0) % Plt Count 271 D (150-375) k/mm3 BMP 06/16/24 15:30 Sodium 138 Potassium 3.9 Chloride 105 Carbon Dioxide 28 BUN 12 D Creatinine 0.80 Glucose 93 Calcium 9.5 Liver Function 06/16/24 Range/Units 15:30 Total Bilirubin 0.5 (0.2-1.3) mg/dL AST 25 (14-36) U/L ALT 24 (6-35) U/L Alkaline Phosphatase 97 (38-126) U/L Albumin 4.6 (3.5-5.1) g/dL
[2024-06-17] MEDS: HYDROcodone/acetaminophen (*CRX) 5-325 MG TABLET 1 TAB PO ×2 (13:34→20:38)
--- NOTE | 2024-06-17 16:07 | PCSTNOTE ---
Please refer to the Bedside Swallow Evaluation in the EMR. Please note, silent aspiration cannot be ruled out at bedside.
[2024-06-18] VITALS (9 sets, daily range): BP systolic 100–119; BP diastolic 62–74; PULSE 69–91; RESP 18; TEMP 36.6; O2SAT 98–100
[2024-06-18] MEDS: ceFAZolin 1 GM/NS 50 ML 1 GM/50 ML BAG IVPB ×3 (01:46→17:45)
--- NOTE | 2024-06-18 08:08 | P.PNIM_ITS ---
Progress Note: A&P Assessment and Plan (1) Facial paresthesia: Code(s): R20.2 - Paresthesia of skin Status: Acute Assessment and Plan: neurology consulted see plan for #3 (2) Tongue deviation: Code(s): K14.8 - Other diseases of tongue Status: Acute Assessment and Plan: see below (3) Chondritis of right external ear: Code(s): H61.031 - Chondritis of right external ear Status: Acute Assessment and Plan: The patient presented to the emergency department for evaluation of paresthesias of the right side of her face and deviation of the tongue as detailed in HPI. -on exam- evidence of chondritis of the right ear with associated swelling in the preauricular region. She was recently started on hormones and is concerned for stroke and a brain MRI has been ordered to rule out that and other etiologies-Brain mRI wnl Analgesics are available as needed for pain Continue cefazolin IV trend labs daily-cbc, bmp-ordered Time Spent With Patient Time with patient: Greater than 35 minutes Subjective Date/time seen: 06/18/24 08:08 Interval history: Swelling right side of neck/jaw, numbness in face. Narrative retrieved from H/P: This is a pleasant 33-year-old female with history of migraine headaches and polycystic ovarian syndrome status post total hysterectomy and bilateral salpingo-oophorectomy on 04/30/2024 who presented to the emergency department via private vehicle for evaluation of swelling of the right side of the neck/jaw and numbness of the right side of the face. The patient provides the following history. She has almost daily headaches which usually settle in the right temporal region. Over the last week or so she developed pain in the posterior right neck, ear, and right jaw. She has been taking Fioricet and oxycodone which she had left over from her recent hysterectomy without much benefit. Today she noticed numbness and tingling of the right side of the lower face, right part of the lower lip, and right side of the tongue. noticed that the right side of her face seemed to be a tad droopy. He then asked her to stick her tongue out and she was able to do so without issue however when she attempted to curl her tongue, it deviated to the right. Due to concerns for possible stroke she came in for evaluation. On exam her right ear with slightly red and swollen and she was noted to have a fluctuant marble-sized area over the antitragus. That apparently popped up over the past 1 week and has become increasingly painful and a bit more swollen. She denies fever, chills, sweats, sinus congestion, sore throat, vision changes, difficulty speaking and swallowing (she did bite her tongue accidentally due to the paresthesias), focal weakness, gait disturbances, injury, fall, recent ear piercings, and bites. In the ED: She was afebrile on arrival with stable vital signs. CMP and CBC were unremarkable. Head CT was without acute findings. ED provider attempted to drain the fluctuant area on the ear but only a small amount of serosanguineous fluid was obtained. She received cefazolin 1 g. Due to concerns for possible stroke or other neurologic condition, we were asked to admit the patient for further workup. pt is seen and examined. MRI brain scheduled for today. neurology is consulted. 06/18- MRI negative. Pt reports swelling and pain still- pain is controlled with pain meds. NO nausea. no new symptoms. ON IV cefazolin Review of Systems Review of Systems: 12 systems were reviewed and are negativ e except for as per HPI. Exam Narrative: General: Well-developed, nontoxic-appearing female. Weight: 59 kg. BMI: 25.4. HEENT: Normocephalic, atraumatic. There is a marble-sized fluctuant area over the right anti tragus with surrounding erythema, induration, and a bit of warmth over the helix and antihelix. The area is quite tender to palpation. She also has tenderness in the right pre-auricular region and down to the angle of the right mandible. PERRL, EOMI. Sclera anicteric. Oral mucosa moist. Oropharynx clear. Neck: Supple. Right sternocleidomastoid feels tense near the occiput. There is some erythema in the area due to patient massaging. Respiratory: Lungs are clear to auscultation bilaterally. Cardiovascular: Regular rate and rhythm with S1-S2. Gastrointestinal: Abdomen is soft, nontender, and nondistended with positive bowel sounds. Skin: Warm and dry. No rash or lesions on limited exam. Extremities: No cyanosis, clubbing, or edema. Radial and pedal pulses intact. Neurological: Alert and oriented. Cranial nerves 2-12 are grossly intact. Speech is clear. Perhaps very mild right is mild facial droop. Tongue protrudes midline however it does deviate to the right when she attempts to protrude her tongue while curling the tongue. Subjective decrease in sensation over the right cheek and right bottom lower lip. No pronator drift. 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 Number [id number], rapid alternating movements, and heel to briscoe. Psychiatric: Pleasant and cooperative with normal mood and affect. Judgment and insight intact. Const: General: comfortable Objective Data Vital Signs Vital Signs: Vital Signs - 24 hr 06/17/24 12:00 06/17/24 14:39 06/17/24 16:00 Temperature 97.8 F Pulse Rate 81 80 83 Respiratory Rate 18 Blood Pressure 108/61 Pulse Oximetry 98 06/17/24 20:00 06/17/24 21:34 06/18/24 00:00 Temperature 97.7 F Pulse Rate 96 80 74 Respiratory Rate 18 Blood Pressure 112/64 Pulse Oximetry 99 06/18/24 04:00 06/18/24 04:18 Temperature 97.8 F Pulse Rate 82 84 Respiratory Rate 18 Blood Pressure 100/62 Pulse Oximetry 99 Intake/Output Intake/Output: Intake & Output 06/15/24 06/16/24 06/17/24 06/18/24 23:59 23:59 23:59 23:59 Intake Total 2030 760 Balance 2030 760 Meds/Results Medications: Active Medications Generic Name Dose Route Start Last Admin Trade Name Freq PRN Reason Stop Dose Admin Acetaminophen 650 mg 06/17/24 03:54 Acetaminophen 325 Mg Tablet PO Q6H PRN Mild Pain (1-3) or Fever Hydrocodone Bitart/Acetaminophen 1 tab 06/17/24 03:54 06/17/24 20:38 Hydrocodone/Acetaminophen (*Crx) 5-325 Mg Tablet PO 1 tab Q6H PRN Administration Pain Rated 4-6 Cefazolin Sodium 1 gm in 50 mls @ 100 mls/hr 06/17/24 10:00 06/18/24 01:46 Ancef 1 Gm/Ns 50 Ml IVPB 100 mls/hr Q8H [facility] Administration Radiology Results: ITS Impressions Head CT 06/16/24 15:13 IMPRESSION: 1. Normal brain. Head/Neck CTA 06/17/24 06:25 Impression: No significant abnormality. Brain MRI 06/17/24 12:52 IMPRESSION: Normal exam. Quality VTE Prophylaxis VTE prophylaxis: mechanical ordered
[2024-06-18 08:29] LABS: Hematocrit 40.1 % (37.0-47.0); Hemoglobin 13.7 g/dL (12.0-15.0); Mean Corpuscular HGB Conc 34.2 g/dl (32-36); Mean Corpuscular Hemoglobin 30.2 pg (26-34); Mean Corpuscular Volume 88.5 fl (80-100); Mean Platelet Volume 9.6 fl (7.4-10.4); Platelet Count Result 240 k/mm3 (150-375); Red Blood Count 4.53 M/mm3 (4.2-5.4); Red Cell Distribution Width 12.3 % (11.5-14.5); White Blood Count 6.6 K/mm3 (4.5-10.0)
[2024-06-18 08:38] LABS: Anion Gap 3 mmol/L (4-12); Blood Urea Nitrogen 10 mg/dL (7-17); Calcium 9.1 mg/dL (8.4-10.2); Carbon Dioxide 27 mmol/L (22-30); Chloride 107 mmol/L (98-107); Estimated CRCL calculation 101 ml/min; Estimated Glomerular Filt Rate > 60; Glucose 93 mg/dL (65-110); Potassium 4.2 mmol/L (3.4-5.0); Sodium 137 mmol/L (137-145)
[2024-06-18] MEDS: HYDROcodone/acetaminophen (*CRX) 5-325 MG TABLET 1 TAB PO (09:23)
[2024-06-18] MEDS: KETOROLAC 15 MG/ML VIAL (*BKC) IV PUSH ×2 (13:22→20:44)
--- NOTE | 2024-06-18 16:02 | WPDNEUROPN ---
Progress Note: A&P Assessment and Plan (1) Right-sided Mary's palsy: Code(s): G51.0 - Mary's palsy Status: Acute Plan Pain and discomfort in the right ear and possible minimal hyperacusis does raise possibility of Sergo Schreiber syndrome however I do not find any clear evidence for that nevertheless to give her the benefit of doubt out suggest you can consider treatment with antiviral agent and steroids for next 10 days. MRI of the brain did not show any significant abnormalities. Do not find any other significant abnormalities. She does follow up with a neurologist and [facility] and she can continue follow-up with them with regard to chronic headache as well as the current neurologic problem however if she would like any assistance for follow-up with regard to the facial weakness I shall be glad to see her. you may also consider an ENT consultation. Appear to be any evidence for mastoiditis or any perforation of the ear drum. I shall be glad to discuss these further with you. Subjective Date/time seen: 06/18/24 16:02 Interval history: The patient is 33-year-old right-handed white female with history of discomfort around the right ear and weakness of the right face admitted to the hospital on 06/16/2024. Symptoms persist. She was seen by speech therapist since he feels that she has some swelling of the tongue on the right side and that leads some difficult with swallowing. Overall she is able to function fairly well except for some discomfort a described above. In addition she has a long history of headaches and she has been following up with a neurologist at different hospital for last 7 years. She is currently on Aimovig monthly injections and is waiting for insurance approval for Botox. She has been taking Fioricet and hydrocodone besides [id number] pain medications at the 60 tablets a month since he has some degree of pain nearly on a daily basis. She has not felt any blisters in the mouth or any change in the hearing. Sometimes he thinks he can hear slightly louder of the right ear than left side but she denies any intense pain in the right ear. Review of Systems Review of Systems: All systems reviewed & are unremarkable except as noted in HPI and below Exam Const: General: cooperative, well developed and alert Orientation/consciousness: patient oriented x3 HENMT: Head: atraumatic Mouth: Yes oropharynx normal Other: No vesicles or blisters seen in the mouth. Examination years shows slight redness in the right side but the eardrum is intact no blisters were seen in the year. Hearing also appears fairly symmetric. Eyes: Alignment and Position: position normal Pupils: Equal, round and reactive pupils present EOM: EOMs intact bilaterally Neck: Neck: supple Resp: Effort & Inspection: normal respiratory effort Auscultation: clear to auscultation bilaterally Neuro: General: patient oriented x3 Cranial nerves: Yes CN's II-XII intact bilaterally ( Except for mild right for a nuclear facial weakness), Yes facial sensation intact/muscles of mastication intact, Yes Equal, round and reactive pupils present and Yes Midline tongue present Cognition (Neuro): normal cognition Speech: normal speech Motor exam (neuro): 5/5 motor strength present throughout Sensory Exam: normal sensation Coordination: [id number] test normal and Normal rapid alternating movements of the distal upper extremity present (Neuro) Objective Data Vital Signs Vital Signs: Vital Signs - 24 hr 06/17/24 20:00 06/17/24 21:34 06/18/24 00:00 Temperature 97.7 F Pulse Rate 96 80 74 Respiratory Rate 18 Blood Pressure 112/64 Pulse Oximetry 99 Oxygen Delivery 06/18/24 04:00 06/18/24 04:18 06/18/24 08:00 Temperature 97.8 F Pulse Rate 82 84 Respiratory Rate 18 Blood Pressure 100/62 Pulse Oximetry 99 99 Oxygen Delivery Room Air 06/18/24 14:00 Temperature 97.8 F Pulse Rate 80 Respiratory Rate 18 Blood Pressure 112/68 Pulse Oximetry 98 Oxygen Delivery Intake/Output Intake/Output: Intake & Output 06/15/24 06/16/24 06/17/24 06/18/24 23:59 23:59 23:59 23:59 Intake Total 2029 1290 Balance 2029 1290 Meds/Results Medications: Active Medications Generic Name Dose Route Start Last Admin Trade Name Freq PRN Reason Stop Dose Admin Acetaminophen 650 mg 06/17/24 03:54 Acetaminophen 325 Mg Tablet PO Q6H PRN Mild Pain (1-3) or Fever Hydrocodone Bitart/Acetaminophen 1 tab 06/17/24 03:54 06/18/24 09:23 Hydrocodone/Acetaminophen (*Crx) 5-325 Mg Tablet PO 1 tab Q6H PRN Administration Pain Rated 4-6 Cefazolin Sodium 1 gm in 50 mls @ 100 mls/hr 06/17/24 10:00 06/18/24 09:16 Ancef 1 Gm/Ns 50 Ml IVPB 100 mls/hr Q8H LASHELL Administration Ketorolac Tromethamine 15 mg 06/18/24 10:20 06/18/24 13:22 Ketorolac 15 Mg/Ml Vial (*Bkc) IV PUSH 15 mg Q6H PRN Administration Pain Rated 4-6 Radiology Results: ITS Impressions Head CT 06/16/24 15:13 IMPRESSION: 1. Normal brain. Head/Neck CTA 06/17/24 06:25 Impression: No significant abnormality. Brain MRI 06/17/24 12:52 IMPRESSION: Normal exam. Labs Labs: Laboratory Results - last 24 hr 06/18/24 08:20 WBC 6.6 RBC 4.53 Hgb 13.7 Hct 40.1 MCV 88.5 MCH 30.2 MCHC 34.2 RDW 12.3 Plt Count 240 MPV 9.6 Sodium 137 Potassium 4.2 Chloride 107 Carbon Dioxide 27 Anion Gap 3 L BUN 10 Creatinine 0.60 L Estim Creat Clear Calc 101 Estimated GFR > 60 Glucose 93 Calcium 9.1 Imaging My impression: MRI of the brain was reviewed which is within normal range Radiologist's impression: same
[2024-06-19] VITALS: PULSE 95
[2024-06-19] MEDS: ceFAZolin 1 GM/NS 50 ML 1 GM/50 ML BAG IVPB ×2 (02:00→09:29)
[2024-06-19 04:00] VITALS: PULSE 79
[2024-06-19 04:26] VITALS: BP 114/70; PULSE 85; RESP 18; TEMP 36.8; O2SAT 98
[2024-06-19 07:27] LABS: Hematocrit 39.6 % (37.0-47.0); Hemoglobin 13.5 g/dL (12.0-15.0); Mean Corpuscular HGB Conc 34.1 g/dl (32-36); Mean Corpuscular Hemoglobin 30.5 pg (26-34); Mean Corpuscular Volume 89.6 fl (80-100); Mean Platelet Volume 9.6 fl (7.4-10.4); Platelet Count Result 218 k/mm3 (150-375); Red Blood Count 4.42 M/mm3 (4.2-5.4); Red Cell Distribution Width 12.3 % (11.5-14.5); White Blood Count 7.4 K/mm3 (4.5-10.0)
[2024-06-19 07:36] LABS: Anion Gap 1 mmol/L (4-12); Blood Urea Nitrogen 9 mg/dL (7-17); Calcium 9.1 mg/dL (8.4-10.2); Carbon Dioxide 26 mmol/L (22-30); Chloride 110 mmol/L (98-107); Estimated CRCL calculation 101 ml/min; Estimated Glomerular Filt Rate > 60; Glucose 94 mg/dL (65-110); Potassium 4.3 mmol/L (3.4-5.0); Sodium 137 mmol/L (137-145)
--- NOTE | 2024-06-19 08:55 | P.DS_ITS ---
DS: Admitting Diagnosis Discharge Date 06/19 Admitting Diagnosis Swelling right side of neck/jaw, numbness in face. DS: Discharge Diagnosis Discharge Diagnosis (1) Facial paresthesia: Code(s): R20.2 - Paresthesia of skin Status: Acute (2) Tongue deviation: Code(s): K14.8 - Other diseases of tongue Status: Acute (3) Chondritis of right external ear: Code(s): H61.031 - Chondritis of right external ear Status: Acute DS: Summary Hospital Course Hospital Course: The patient is 33-year-old right-handed white female with history of discomfort around the right ear and weakness of the right face admitted to the hospital on 06/16/2024. Symptoms persist. She was seen by speech therapist since he feels that she has some swelling of the tongue on the right side and that leads some difficult with swallowing. Overall she is able to function fairly well except for some discomfort a described above. In addition she has a long history of headaches and she has been following up with a neurologist at different hospital for last 7 years. She is currently on Aimovig monthly injections and is waiting for insurance approval for Botox. She has been taking Fioricet and hydrocodone besides [id number] pain medications at the 60 tablets a month since she has some kind of degree of pain nearly on a daily basis. She has not felt any blisters in the mouth or any change in the hearing. Sometimes she thinks she can hear slightly louder of the right ear than left side but she denies any intense pain in the right ear. MRI of the brain did not show any significant abnormalities. Do not find any other significant abnormalities. She does follow up with a neurologist and [facility] and she can continue follow-up with them with regard to chronic headache as well as the current neurologic problem. Will need a consultation with ENT She improved 1/2- pain is better as well as swelling- so she will be discharged with 10 days of steroid taper and NSAID. Status at Discharge Functional status at discharge: independent ambulation Overall status at discharge: patient is progressing back to baseline Time Spent with Patient Time attestation: Total time spent providing and/or coordinating discharge services: Time spent: Greater than 30 minutes Exam 2 Narrative: General: Well-developed, nontoxic-appearing female. Weight: 59 kg. BMI: 25.4. HEENT: Normocephalic, atraumatic. There is a marble-sized fluctuant area over the right anti tragus with surrounding erythema, induration, and a bit of warmth over the helix and antihelix. The area is quite tender to palpation. She also has tenderness in the right pre-auricular region and down to the angle of the right mandible. tenderness and swelling improving. PERRL, EOMI. Sclera anicteric. Oral mucosa moist. Oropharynx clear. Neck: Supple. Right sternocleidomastoid feels tense near the occiput. There is some erythema in the area due to patient massaging. Respiratory: Lungs are clear to auscultation bilaterally. Cardiovascular: Regular rate and rhythm with S1-S2. Gastrointestinal: Abdomen is soft, nontender, and nondistended with positive bowel sounds. Skin: Warm and dry. No rash or lesions on limited exam. Extremities: No cyanosis, clubbing, or edema. Radial and pedal pulses intact. Neurological: Alert and oriented. Cranial nerves 2-12 are grossly intact. Speech is clear. Perhaps very mild right is mild facial droop. Tongue protrudes midline however it does deviate to the right when she attempts to protrude her tongue while curling the tongue. Subjective decrease in sensation over the right cheek and right bottom lower lip. No pronator drift. 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 Number [id number], rapid alternating movements, and heel to briscoe. Psychiatric: Pleasant and cooperative with normal mood and affect. Judgment and insight intact. Const: General: comfortable DS: Data Data Completed and Pending Completed studies during hospitalization: mri Labs on day of discharge: Labs from last 24 hours 06/19/24 07:21 WBC 7.4 RBC 4.42 Hgb 13.5 Hct 39.6 MCV 89.6 MCH 30.5 MCHC 34.1 RDW 12.3 Plt Count 218 MPV 9.6 Sodium 137 Potassium 4.3 Chloride 110 H Carbon Dioxide 26 Anion Gap 1 L BUN 9 Creatinine 0.60 L Estim Creat Clear Calc 101 Estimated GFR > 60 Glucose 94 Calcium 9.1 Discharge Plan Discharge Attending physician on discharge: Brennon Mancilla Consulting providers: Homero Watson Discharging Clinician: Cathie Ramos Patient Disposition: Home, Self-Care Activity: may shower Diet: as tolerated and regular Discharge Instructions: You will be sent home with steroid taper. Take 60 mg on 06/19, 06/20, then 50 mg on 06/21, 06/22, then 40 mg on 06/23, 06/24, 30 mg on 06/25, 06/26, then 20 mg on 06/27, and 10 mg on 06/28. Take toradol as needed- it is NSAID- so avoid taking Motrin, ibuprofen, Aleve as we discussed. Please follow up with PCP, neurology and ENT. i will send some antibiotics for you as well to complete the course. Take it with food. Antibiotics can give you diarrhea-taking probiotics should help to prevent it. Any over the counter probiotics would work. Patient Instructions: Antibiotic Form Patient Language: Nicaraguan Stand Alone Forms: General Discharge Information Follow-up/Referrals: [facility] [place] [Outside] - 1 Week Homero Watson MD [Physician] - 1 Week (or follow up with your own neurologist) Deandre,Marko Preciado MD [Primary Care Provider] - 1 Week Discharge Medications: New amoxicillin-pot clavulanate 875-125 mg tablet 1 tablet PO Q12H Qty: 10 0RF prednisolone sodium phosphate 30 mg tablet,disintegrating 30 mg PO DAILY Qty: 4 0RF Rx Instructions: take 60 mg on 06/19 and 60 mg on 06/20 prednisone 50 mg tablet 50 mg PO ONCE Qty: 2 0RF Rx Instructions: take 50 mg on 06/21, 50 mg on 06/22 prednisone 20 mg tablet 20 mg PO DAILY Qty: 4 0RF Rx Instructions: take 40 mg on 06/23, 40 mg on 06/24 prednisolone sodium phosphate 30 mg tablet,disintegrating 30 mg PO DAILY Qty: 2 0RF Rx Instructions: take 30 mg on 06/25, 30 mg on 06/26 prednisone 10 mg tablet 10 mg PO DAILY Qty: 3 0RF Rx Instructions: take 20 mg on 06/27, then take 10 mg on 06/28 Continued sertraline 50 mg tablet 150 mg PO HS [id number] 50-325-40 mg tablet 1 tablet PO Q4H PRN (Reason: Migraine Headache) Aimovig Autoinjector 140 mg/mL auto-injector 140 mg SUBCUT MONTHLY oxycodone-acetaminophen 5-325 mg tablet 1 tablet PO Q4H PRN (Reason: pain) Qty: 25 0RF estradiol 2 mg tablet PO DAILY Date of admission: 06/17/24 00:32 Primary Care Provider: DeandreMarko Admitting Provider: Tiffany Coppola Attending physician on admission: Tiffany Coppola Condition: Stable Quality VTE Prophylaxis VTE prophylaxis: mechanical ordered Hospitalist MIPS Heart Failure (Exclusion) Patient has history of Heart Transplant or Left Ventricular Assistive Device?: No IF YES, STOP HERE Heart Failure (Qualifier) Patient has current or prior documentation of LVEF less than or equal to 40%, or mod/servere depressed LVSF?: No IF NO, STOP HERE
[2024-06-19] MEDS: predniSONE 20 MG TABLET 60 MG PO (09:29)
[2024-06-19] MEDS: KETOROLAC 15 MG/ML VIAL (*BKC) IV PUSH (09:29)
== END 2024-06-19 11:45 | disposition home or self-care (01) ==
LOC: ANHED 06-17 00:37 → ANH2MED 06-19 09:13 → ANH3MEDSUR 06-20 07:29
PROVIDERS: Nurse Practitioner; Physician Assistant; Admitting Provider Internal Medicine; Emergency Provider Physician Assistant; PCP Internal Medicine Infectious Disease; Visit Provider General Practice
DX: R20.2 Paresthesia of skin (principal); K14.8 Other diseases of tongue; H61.031 Chondritis of right external ear; G43.909 Migraine, unspecified, not intractable, without status migrainosus; Z79.899 Other long term (current) drug therapy; Z90.710 Acquired absence of both cervix and uterus; Z90.79 Acquired absence of other genital organ(s); Z90.722 Acquired absence of ovaries, bilateral
CPT/HCPCS: 36415; 70450; 70496; 70498; 70553; 80048; 80053; 85025; 85027; 92610; 96361; 96365; 96374; 96375; 96376; 99285; A9270; A9577; G0378; J0690; J1200; J1885; J2765; J7030; J7512; Q9967